=== PATIENT | male | born 1965 | race Caucasian/White ===

== ENCOUNTER 2020-05-19 22:32 | Inpatient (IN) ==
[2020-05-19] MEDS ORDERED: PANTOprazole 40 MG in SYRINGE 0 ML IV ONE (22:43)
[2020-05-19] MEDS ORDERED: ONDANSETRON INJ 2 MG/ML 2 ML VIAL IV STA (22:43)
[2020-05-19] MEDS ORDERED: FAMOTIDINE 20MG IV PUSH 20 MG/5 ML SYR IV STA (22:43)
[2020-05-19] MEDS ORDERED: SODIUM CHLORIDE 0.9% 1000ML 1,000 ML IV SCH (22:45)
[2020-05-19] MEDS ORDERED: LORazepam 1 MG/2 ML VIAL IV STA (22:51)
[2020-05-19 23:03] LABS: Basophils # (auto) 0.02 K/uL (0-0.2); Basophils % (auto) 0.2 %; Eosinophils # (auto) 0.01 K/uL (0-0.5); Eosinophils % (auto) 0.1 %; Hematocrit (blood only) 28.5 % (42-52); Hemoglobin 9.6 g/dL (14.0-18.0); Immature Granulocytes # (auto) 0.02 K/uL (0.00-0.02); Immature Granulocytes % (auto) 0.2 %; Lymphocytes # (auto) 2.19 K/uL (1.2-3.4); Lymphocytes % (auto) 18.6 %; Mean Corpuscular Hemoglobin 35.3 pg (25-34); Mean Corpuscular Hgb Conc 33.7 g/dL (32-36); Mean Corpuscular Volume 104.8 fL (80-100); Monocytes # (auto) 0.92 K/uL (0.11-0.59); Monocytes % (auto) 7.8 %; Neutrophils # (auto) 8.61 K/uL (1.4-6.5); Neutrophils % (auto) 73.1 %; Platelet Count 135 K/uL (130-400); RDW Coefficient of Variation 14.3 % (11.5-14.5); RDW Standard Deviation 53.8 fL (36.4-46.3); Red Blood Count 2.72 M/uL (4.7-6.1); White Blood Count 11.77 K/uL (4.8-10.8)
[2020-05-19 23:12] LABS: iSTAT Creatinine 1.4 mg/dl (0.6-1.3); iSTAT Hemoglobin 10.9 g/dl (14.0-18.0); iSTAT Ionized Calcium 1.02 mmol/l (1.12-1.32); iSTAT Potassium 3.5 mmol/L (3.3-5.0)
--- NOTE | 2020-05-19 23:14 | Emergency Department Note ---
Impression & Plan Acute upper gastrointestinal bleeding, Anemia, Chronic alcohol use ED Provider Note NAME: Lucero ERWIN AGE: 54 SEX: M : 1965 ARRIVES VIA: Walk-In INFORMANT: Patient, ED PROVIDER(S): Ha Arboleda DO CHIEF COMPLAINT: Nausea vomiting HPI: The patient is a 54-year-old male who presented to the emergency department for an evaluation of epigastric pain nausea and vomiting. The patient states that his symptoms began a few days ago. He does have a history of chronic alcohol use. The patient states he is not had any alcohol in 48 hours. He states that he noticed that his symptoms were worsening upon eating and dri nking. He started noticing loose bowel movements which include brown watery diarrhea. He started noticing black stool recently. The patient is not taking any [id number] antacids. He has never had similar symptoms in the past. The patient was also having episodes of emesis which she noticed included miesha blood. At this time he denies having any abdominal pain. He denies having any chest pain or fever. He has no cough or exposure to COVID-19. He notices no lower extremity swelling. He does notice generalized shaking as well as generalized weakness. ROS: See above HPI for pertinent positives & negatives. A total of 10 systems reviewed and were otherwise negative. PAST MEDICAL HISTORY: See Below PAST SURGICAL HISTORY: See Below FAMILY HISTORY: See Below SOCIAL HISTORY: See Below HOME MEDICATIONS: See Below ALLERGIES: See Below VITALS: See Below PHYSICAL EXAMINATION: GENERAL: The patient is awake and alert. He is very anxious appearing and trem ulous. EYES: The conjunctivae are muddy. The pupils are round and reactive. EARS, NOSE, MOUTH AND THROAT: The nose is without any evidence of any deformity. NECK: The neck is nontender and supple. RESPIRATORY: Diminished breath sounds are noted throughout. Scattered expiratory wheezing was noted in all lung ji. CARDIOVASCULAR: Tachycardic rate with regular rhythm was noted. No definite mur mur was appreciated. GASTROINTESTINAL: The abdomen was soft and nondistended. There was no tenderne ss guarding or rigidity. Rectal exam revealed black stool which was strongly heme positive. MUSCULOSKELETAL/EXTREMITIES: There is no evidence of gross deformity full range of motion is noted in the hips and shoulders. SKIN: There is no obvious evidence of any rash. Skin was pale and cool. No significant pedal edema was noted. NEUROLOGIC: Patient is awake alert and oriented x3 strength is symmetric patellar reflexes are 2+ bilaterally. Fine resting tremor was noted in all extremities. MEDICAL DECISION MAKING: The patient is a 54-year-old male who presented to the emergency department for nausea and vomiting. The patient was found to have black stool. He has a history of alcohol use. Likely the patient has upper GI bleeding. He was treated with IV proton pump inhibitor and IV fluids. He was also given thiamine and IV antibiotics. I discussed the patient's laboratory and radiographic studies with him. Some of his symptoms I think could be secondary to withdrawal and he was treated with a small dose of Ativan. The patient appears to be very ill at this time. Type and screen was sent. I did consent the patient for blood transfusion if needed. Triage Nursing notes reviewed. Prior medical records reviewed Vital Signs: reviewed and remarkable for tachycardia. Differential diagnosis: Diverticulosis, AVM, coagulopathy, colitis, inflammatory bowel disease, malignancy, Krupa-Acuña tear, esophagitis, peptic ulcer disease, variceal ble ed, gastritis, epistaxis, fissure, hemorrhoids, as well as other pathologies. ER treatment provided: See below Diagnostics interpreted by me: ECG: EKG was obtained in the emergency department. My interpretation is sinus tachycardia at 143 bpm. There is no ectopy. Diffuse ST segment abnormalities were noted. LVH was suggested by voltage criteria. No previous tracing was available. Cardiac Monitoring: An order was placed for continuous cardiac monitoring. The monitor shows a rate of 113 bpm with sinus tachycardia rhythm. Laboratory studies: As stated above and show below. Imaging studies: See below Consultation(s): I discussed this case with Dr. Barrera who is on-call for the [facility] hospitalist group. He will evaluate the patient in the emergency department. ED COURSE: Procedures: none PDMP:reviewed and no issues Critical Care: I have personally spent greater than 45 minutes of critical care time in the direct management of this patient. This includes bedside care, interpretation of diagnostic studies, and testing, discussion with consultants, patient, and family members, and other required patient management activities. This 45 minutes is in excess of all separately billable procedures. Past Med/Surg History Medical History Chronic alcohol use Social History Smoking Status: Current every day smoker Hx Alcohol Use: Yes Feels Safe at Home: Yes Allergies Allergies Allergy/AdvReac Type Severity Reaction Status Date / Time pollen extracts Allergy Intermediate SNEEZING, Verified 05/19/20 23:14 CONGESTION Home Meds Home Medications Medication Instructions Recorded Confirmed Probiotic Gummies 1 dose PO DAILY 05/19/20 05/19/20 ibuprofen 400 - 600 mg PO DIRECTED PRN 05/19/20 05/19/20 Results & Data (ED) Vital Signs Vital Signs - 24 hr 05/19/20 22:34 05/19/20 23:01 05/19/20 23:18 Temperature 36.4 C L Temperature Source Temporal Artery Scan Pulse Rate 159 H 129 H 134 H Pulse Rate from SpO2 Sensor 130 H 134 H Respiratory Rate 22 19 16 Respiratory Effort / Characteristics Non-Labored Spontaneous Respiratory Depth Normal Respiratory Pattern Regular Blood Pressure 115/64 112/67 Blood Pressure Mean 81 91 Blood Pressure Position Sitting Pulse Oximetry 99 97 96 Oxygen Delivery Method Room Air Room Air Room Air Sepsis Recent Fever Within 48 Hours No Sepsis New/Unexplained Change in Mental Status No Sepsis Action Taken by Nursing No Action Required 05/19/20 23:26 05/19/20 23:30 05/19/20 23:45 Temperature Temperature Source Pulse Rate 128 H 126 H 124 H Pulse Rate from SpO2 Sensor 127 H 124 H Respiratory Rate 22 20 18 Respiratory Effort / Characteristics Respiratory Depth Respiratory Pattern Blood Pressure Blood Pressure Mean Blood Pressure Position Pulse Oximetry 95 95 93 Oxygen Delivery Method Room Air Room Air Room Air Sepsis Recent Fever Within 48 Hours Sepsis New/Unexplained Change in Mental Status Sepsis Action Taken by Nursing 05/20/20 00:00 Temperature Temperature Source Pulse Rate 122 H Pulse Rate from SpO2 Sensor 122 H Respiratory Rate 19 Respiratory Effort / Characteristics Respiratory Depth Respiratory Pattern Blood Pressure 124/71 Blood Pressure Mean 77 Blood Pressure Position Pulse Oximetry 94 Oxygen Delivery Method Room Air Sepsis Recent Fever Within 48 Hours Sepsis New/Unexplained Change in Mental Status Sepsis Action Taken by Half-Way Medications Current Medication List: was personally reviewed by me Laboratory Data Attestation: I reviewed the patient's lab results. Result diagrams: 05/19/20 22:52 05/19/20 22:52 Lab Results 05/19/20 05/19/20 05/19/20 Range/Units 22:52 22:52 22:52 WBC 11.77 H (4.8-10.8) K/uL RBC 2.72 L (4.7-6.1) M/uL Hgb 9.6 L (14.0-18.0) g/dL POC Hgb (14.0-18.0) g/dl Hct 28.5 L (42-52) % POC Hct (42-52) % MCV 104.8 H (80-100) fL MCH 35.3 H (25-34) pg MCHC 33.7 (32-36) g/dL RDW Std Deviation 53.8 H (36.4-46.3) fL RDW Coeff of Lamonte 14.3 (11.5-14.5) % Plt Count 135 (130-400) K/uL MPV 13.0 H (7.4-10.4) fL Immature Gran % (Auto) 0.2 % Neut % (Auto) 73.1 % Lymph % (Auto) 18.6 % Pitkin % (Auto) 7.8 % Eos % (Auto) 0.1 % Baso % (Auto) 0.2 % Neut # (Auto) 8.61 H (1.4-6.5) K/uL Lymph # (Auto) 2.19 (1.2-3.4) K/uL Pitkin # (Auto) 0.92 H (0.11-0.59) K/uL Eos # (Auto) 0.01 (0-0.5) K/uL Baso # (Auto) 0.02 (0-0.2) K/uL Immature Gran # (Auto) 0.02 (0.00-0.02) K/uL PT 18.8 H (9.0-12.0) Seconds INR 1.8 H (0.9-1.1) APTT 35.3 H (21.0-31.0) Seconds PTT Ratio 1.3 POC Sodium (135-144) mmol/L Sodium 132 L (136-145) mmol/L POC Potassium (3.3-5.0) mmol/L Potassium 3.3 L (3.5-5.1) mmol/L POC Chloride (101-112) mmol/L Chloride 90 L (98-107) mmol/L Carbon Dioxide 25 (21-32) mmol/L POC Total CO2 (24-31) mmol/L Anion Gap 17.0 H (3-11) POC Anion Gap (16-25) mmol/L POC BUN (7-18) mg/dl BUN 42 H (7-18) mg/dl Creatinine 1.74 H (0.6-1.4) mg/dl POC Creatinine (0.6-1.3) mg/dl Est Cr Clr Drug Dosing 51.0 ml/min Est GFR ( Amer) 50.8 Est GFR (Non-Af Amer) 43.8 BUN/Creatinine Ratio 24.1 H (10-20) Glucose 117 H (70-99) mg/dl POC Glucose (other) (70-99) mg/dl Calcium 9.2 (8.5-10.1) mg/dl POC Ioniz Calcium Oz (1.12-1.32) mmol/l Total Bilirubin 6.5 H (0.2-1) mg/dl AST 226 H (15-37) U/L ALT 63 (12-78) U/L Alkaline Phosphatase 174 H (45-117) U/L Troponin I < 0.015 (0-0.045) ng/ml Total Protein 7.5 (6.4-8.2) gm/dl Albumin 2.8 L (3.4-5.0) gm/dl Globulin 4.7 H (2.5-4.0) gm/dl Albumin/Globulin Ratio 0.6 L (0.9-2) Lipase 118 (73-393) U/L POC Stool Occult Blood (Negative) SARS-CoV-2 Ag (Rapid) (Negative) 05/19/20 05/19/20 05/19/20 Range/Units 22:59 23:25 Unknown WBC (4.8-10.8) K/uL RBC (4.7-6.1) M/uL Hgb (14.0-18.0) g/dL POC Hgb 10.9 L (14.0-18.0) g/dl Hct (42-52) % POC Hct 32 L (42-52) % MCV (80-100) fL MCH (25-34) pg MCHC (32-36) g/dL RDW Std Deviation (36.4-46.3) fL RDW Coeff of Lamonte (11.5-14.5) % Plt Count (130-400) K/uL MPV (7.4-10.4) fL Immature Gran % (Auto) % Neut % (Auto) % Lymph % (Auto) % Pitkin % (Auto) % Eos % (Auto) % Baso % (Auto) % Neut # (Auto) (1.4-6.5) K/uL Lymph # (Auto) (1.2-3.4) K/uL Pitkin # (Auto) (0.11-0.59) K/uL Eos # (Auto) (0-0.5) K/uL Baso # (Auto) (0-0.2) K/uL Immature Gran # (Auto) (0.00-0.02) K/uL PT (9.0-12.0) Seconds INR (0.9-1.1) APTT (21.0-31.0) Seconds PTT Ratio POC Sodium 132 L (135-144) mmol/L Sodium (136-145) mmol/L POC Potassium 3.5 (3.3-5.0) mmol/L Potassium (3.5-5.1) mmol/L POC Chloride 90 L (101-112) mmol/L Chloride (98-107) mmol/L Carbon Dioxide (21-32) mmol/L POC Total CO2 26 (24-31) mmol/L Anion Gap (3-11) POC Anion Gap 20.0 (16-25) mmol/L POC BUN 40 H (7-18) mg/dl BUN (7-18) mg/dl Creatinine (0.6-1.4) mg/dl POC Creatinine 1.4 H (0.6-1.3) mg/dl Est Cr Clr Drug Dosing ml/min Est GFR ( Amer) Est GFR (Non-Af Amer) BUN/Creatinine Ratio (10-20) Glucose (70-99) mg/dl POC Glucose (other) 119 H (70-99) mg/dl Calcium (8.5-10.1) mg/dl POC Ioniz Calcium Oz 1.02 L (1.12-1.32) mmol/l Total Bilirubin (0.2-1) mg/dl AST (15-37) U/L ALT (12-78) U/L Alkaline Phosphatase (45-117) U/L Troponin I (0-0.045) ng/ml Total Protein (6.4-8.2) gm/dl Albumin (3.4-5.0) gm/dl Globulin (2.5-4.0) gm/dl Albumin/Globulin Ratio (0.9-2) Lipase (73-393) U/L POC Stool Occult Blood Positive A (Negative) SARS-CoV-2 Ag (Rapid) Negative (Negative) Administered Medications Discontinued Medications Sodium Chloride (Nss 1000ml) 1,000 mls @ 999 mls/hr IV .Q1H1M SADE Stop: 05/19/20 23:45 Last Infusion: 05/20/20 00:05 Dose: 0 mls/hr Documented by: [id number] Admin: 05/19/20 23:16 Dose: 999 mls/hr Documented by: [id number] Pantoprazole Sodium 40 mg/ (Syringe) 10 mls @ 5 mls/min IV NOW ONE Stop: 05/19/20 22:44 Last Admin: 05/19/20 23:18 Dose: 5 mls/min Documented by: [id number] Famotidine (Pepcid 20mg Iv Push) 20 mg in 5 mls @ 2.5 mls/min IV NOW STA Stop: 05/19/20 22:44 Last Admin: 05/19/20 23:23 Dose: 2.5 mls/min Documented by: [id number] Lorazepam (Ativan) 1 mg in 2 mls @ 2 mls/min IV NOW STA Stop: 05/19/20 22:52 Last Admin: 05/19/20 23:15 Dose: 2 mls/min Documented by: [id number] Thiamine HCl 200 mg/ Sodium (Chloride) 52 mls @ 208 mls/hr IV NOW STA Stop: 05/19/20 23:37 Last Admin: 05/19/20 23:54 Dose: 208 mls/hr Documented by: [id number] Ondansetron HCl (Ondansetron Inj 2 Mg/Ml 2 Ml Vial) 4 mg IV ONE STA Stop: 05/19/20 22:44 Last Admin: 05/19/20 23:17 Dose: 4 mg Documented by: [id number] Imaging Data Attestation: I personally reviewed and interpreted this imaging study as follows: My Impression: 1 view the chest x-ray was obtained in the emergency department. My interpretation is hyperinflated lungs were noted. No free air was noted. No infiltrate was appreciated. KUB was obtained in the emergency department. Nonspecific bowel gas pattern was noted. There was no free air. No definite obstruction was appreciated. Blood Pressure Blood Pressure Findings: Normal blood pressure Discharge Plan Visit Data Chief Complaint: Weakness Stated Complaint: throwing up blood, weak ED Provider: Ha Arboleda Discharge Problem: Acute upper gastrointestinal bleeding, Anemia, Chronic alcohol use Patient Disposition: Being Evaluated by Hospitalist Condition: Good Forms Stand Alone Forms: [facility] Prescriptions Prescriptions: No Action ibuprofen 200 mg Tablet 400 - 600 mg PO DIRECTED PRN (Reason: FEVER/PAIN) RF: 0 Probiotic Gummies 1 dose PO DAILY RF: 0 Referrals Referrals: Carson Benitez MD [Primary Care Provider] - Discharge Problem: Anemia Qualifiers: Anemia type: unspecified type Qualified Code(s): D64.9 - Anemia, unspecified
[2020-05-19 23:20] LABS: INR 1.8 (0.9-1.1); Partial Thromboplastin Ratio 1.3; Partial Thromboplastin Time 35.3 Seconds (21.0-31.0); Prothrombin Time 18.8 Seconds (9.0-12.0)
[2020-05-19] MEDS ORDERED: cefTRIAXone SODIUM 1,000 MG/50 ML BAG IV STA (23:23)
[2020-05-19] MEDS ORDERED: THIAMINE HCL 200 MG in SODIUM CHLORIDE 0.9% 50 ML IV STA (23:23)
[2020-05-19 23:49] LABS: Alanine Aminotransferase 63 U/L (12-78); Albumin Globulin Ratio 0.6 (0.9-2); Albumin Level 2.8 gm/dl (3.4-5.0); Alkaline Phosphatase 174 U/L (45-117); Aspartate Aminotransferase 226 U/L (15-37); BUN Creatinine Ratio 24.1 (10-20); Bilirubin,Total 6.5 mg/dl (0.2-1); Blood Urea Nitrogen 42 mg/dl (7-18); Calcium 9.2 mg/dl (8.5-10.1); Carbon Dioxide 25 mmol/L (21-32); Chloride 90 mmol/L (98-107); Est GFR (African American) 50.8; Est GFR (Non-African American) 43.8; Globulin 4.7 gm/dl (2.5-4.0); Glucose 117 mg/dl (70-99); Lipase 118 U/L (73-393); Potassium 3.3 mmol/L (3.5-5.1); Sodium 132 mmol/L (136-145); Total Protein 7.5 gm/dl (6.4-8.2); Troponin I < 0.015 ng/ml (0-0.045)
[2020-05-20] MEDS ORDERED: LORazepam 1.5 MG/3 ML VIAL IV STA (01:37)
[2020-05-20] MEDS ORDERED: METOPROLOL TARTRATE 1 MG/ML VIAL IV STA (01:37)
[2020-05-20] MEDS ORDERED: PIPERACILL/TAZOBAC CONSULT ACTIVE PRN (02:38)
[2020-05-20] MEDS ORDERED: LORazepam 3 MG/6 ML VIAL IV PRN (02:38)
[2020-05-20] MEDS ORDERED: cloNIDine HCL 0.1 MG TAB PO PRN (02:38)
[2020-05-20] MEDS ORDERED: GABAPENTIN 1200MG ALCOHOL WITHDRAWAL LOAD PO STA (02:38)
[2020-05-20] MEDS ORDERED: LORazepam 1 MG/2 ML VIAL IV PRN (02:38)
[2020-05-20] MEDS ORDERED: METOPROLOL TARTRATE 1 MG/ML VIAL IV PRN (02:38)
[2020-05-20] MEDS ORDERED: LORazepam 2 MG/4 ML VIAL IV PRN (02:38)
[2020-05-20] MEDS ORDERED: ATIVAN IV ALCOHOL WITHDRAWL IV PRN (02:38)
[2020-05-20] MEDS ORDERED: POTASSIUM CHLORIDE 20 MEQ/15 ML UDC PO STA (02:38)
[2020-05-20] MEDS ORDERED: NITROGLYCERIN SL 0.4 MG/TAB TAB SL PRN (02:38)
[2020-05-20] MEDS ORDERED: ONDANSETRON INJ 2 MG/ML 2 ML VIAL IV PRN ×2 (02:38→12:24)
[2020-05-20] MEDS ORDERED: MULTI-VITAMIN INFUSION 10 ML, THIAMINE HCL 100 MG, FOLIC ACID 1 MG in SODIUM CHLORIDE 0... IV ONE (02:38)
[2020-05-20] MEDS ORDERED: GABAPENTIN 600 MG TAB PO ONE (03:00)
[2020-05-20] MEDS: D5NSS + 20MEQ KCL 20 MEQ/1,000 ML BAG IV SCH ×2 (03:30→14:39)
[2020-05-20] MEDS: PANTOprazole 40 MG in DEXTROSE 5% 100 ML IV SCH ×5 (03:33→22:56)
--- NOTE | 2020-05-20 05:28 | History and Physical Report ---
DATE OF ADMISSION: 05/20/2020 CHIEF COMPLAINT: Blood in the stools and hematemesis. HISTORY OF PRESENT ILLNESS: This is a 54-year-old male with ongoing tobacco abuse and alcohol abuse, who presents with several episodes of hematemesis. As per the patient, he has had about 6 episodes of hematemesis, small amounts since last 1 week, and also few episodes of black stools, and also having abdominal discomfort, which prompted him to come to the ER. He says he drinks several beers everyday and also two shots of Vodka every day for almost 30 years, but his last drink was last Saturday. He also smokes three-quarters of a pack a day of cigarettes for the last 30 years. He lives with his mom and his cats. In the ER, he was found to have tachycardia and shaky and received a dose of Ativan. His hemoglobin was 9.6, we do not have the baseline. His INR is 1.8. Potassium is 3.3, creatinine 1.7, T. bili 6.5,AST 226, ALT 63, alkaline phosphatase 174. Troponin less than 0.015. Hemoccult was positive. Rapid COVID test was negative. EKG showed sinus tachycardia. Complains of some abdominal discomfort. Denies any chest pain. He gets short of breath on exertion. Denies any headache, no blurred vision, no earache, no runny nose, no sore throat. He has smoker's cough. Denies any fevers or chills. He has some nausea. Normal bladder movements. ALLERGIES: POLLEN EXTRACTS. PAST MEDICAL HISTORY: As mentioned above. PAST SURGICAL HISTORY: No past surgical history on file. SOCIAL HISTORY: He says he smokes three-fourths of a pack of cigarettes every day for last 30 years. Alcohol, drinks several beers and couple of shots of vodka every day for last 30 years. FAMILY HISTORY: No family history on file. MEDICATIONS: Ibuprofen p.r.n., Probiotic gummies daily. REVIEW OF SYSTEMS: As per HPI. Rest of the review of systems negative. PHYSICAL EXAMINATION: GENERAL: The patient is of moderate build, not in acute distress. VITAL SIGNS: Temperature 36.7, pulse 72, respiratory rate 20, blood pressure 106/74, oxygen 97% on room air. HEENT: Pupils equal, round, and reactive to light. Oral mucosa moist. NECK: No neck masses seen. CARDIOVASCULAR: S1, S2 heard. Tachycardia. No murmurs. RESPIRATORY SYSTEM: Normal AP diameter. No accessory muscle use. Mild bilateral occasional wheezing. No crackles. ABDOMEN: Soft, bowel sounds present, nontender. No distention. CENTRAL NERVOUS SYSTEM: Cranial nerves II-XII grossly intact. Nonfocal. EXTREMITIES: No edema, no erythema. LABORATORY DATA: WBC 11.7, hemoglobin 9.6, hematocrit 28.5, platelets 135. PT 18.8, INR 1.8, APTT 35.3. Sodium 132, potassium 3.3, chloride 90, bicarbonate 25, BUN 42, creatinine 1.74, serum glucose 117, calcium 9.2, total bilirubin 6.5, AST 226, ALT 63, alkaline phosphatase 174. Troponin I less than 0.015. Lipase 118. Point of care stool occult blood positive. SARS-CoV-2 antigen rapid negative. IMAGING DATA: Chest x-ray, no acute findings. EKG: Sinus tachycardia at a rate of 143. Nonspecific ST abnormalities. No previous ECG available. ASSESSMENT AND PLAN: This is a 54-year-old male with ongoing alcohol abuse and tobacco abuse, presents with gastrointestinal bleed. 1. Gastrointestinal bleed, melena, and also hematemesis: Hemoglobin is 9.6. We do not have the baseline. Was started on Protonix drip. H and H q. 6 hours. Blood consent obtained by the ER. Closely monitor in tele floor. Keep him n.p.o., gentle fluids. Consult GI. Monitor in the tele floor. 2. Alcoholism: Banana bag, IV gabapentin, and IV Ativan protocol and IV thiamine, IV folic acid from a.m. and multivitamin from a.m. Monitor closely for withdrawal. Needs counseling. 3. Tobacco abuse: Needs counseling. 4. Anemia: Hemoglobin 9.6 from GI bleed, will monitor. 5. Elevated LFTs with hyperbilirubinemia: Most likely alcoholic hepatitis. We will follow the repeat labs, await GI input. 6. Hyponatremia: Sodium 132. Getting fluids. Follow the labs in the a.m. 7. Hypokalemia: Will replace. 8. Acute kidney injury: Creatinine of 1.74. We do not have the baseline. We will follow the labs in a.m. Getting fluids. Avoid nephrotoxic agents. 9. Deep venous thrombosis prophylaxis: Sequential compression devices for now. 10. Disposition: Closely monitor in the tele floor. Level 1 full code. Expect to discharge home and follow with family doctor. [place]
[2020-05-20] MEDS ORDERED: PIPERACILLIN/TAZOBACTAM 3.375 GM in DEXTROSE 5% 100 ML IV SCH ×2 (06:00→10:00)
--- NOTE | 2020-05-20 06:20 | XRay Report ---
KUB CLINICAL HISTORY: Vomiting. COMPARISON STUDY: None. FINDINGS: The bowel gas pattern is normal. No urinary calculi are identified. Minimal stool is noted. Although sensitivity is diminished on this supine exam, there is no evidence for free air. IMPRESSION: No evidence for a bowel obstruction. ACT 112: Negative or not required by law. Electronically signed by: Hemanth Morales M.D. 05/20/2020 6:18 AM
--- NOTE | 2020-05-20 06:33 | XRay Report ---
XR chest 1V portable HISTORY: 54 years-old Male vomiting acute nausea with vomiting COMPARISON: KUB of same day TECHNIQUE: Portable AP view of the chest FINDINGS: Cardiomediastinal and hilar silhouettes are within normal limits. No pneumothorax, pleural effusion, airspace consolidation or overt pulmonary edema. Degenerative changes of the spine. Mild right hemidi aphragmatic elevation. IMPRESSION: No acute process. ACT 112: Negative or not required by law. The above report was generated using voice recognition software. It may contain grammatical, syntax o r spelling errors. Electronically signed by: Faizan Huber M.D. 05/20/2020 6:32 AM
[2020-05-20 06:58] LABS: Hematocrit (blood only) 23.5 % (42-52); Mean Corpuscular Hemoglobin 35.2 pg (25-34); Mean Corpuscular Volume 103.5 fL (80-100); Mean Platelet Volume 13.2 fL (7.4-10.4); Platelet Count 109 K/uL (130-400); RDW Coefficient of Variation 14.4 % (11.5-14.5); RDW Standard Deviation 53.8 fL (36.4-46.3); Red Blood Count 2.27 M/uL (4.7-6.1); White Blood Count 8.23 K/uL (4.8-10.8)
[2020-05-20 06:59] LABS: Basophils # (auto) 0.01 K/uL (0-0.2); Basophils % (auto) 0.1 %; Eosinophils # (auto) 0.02 K/uL (0-0.5); Eosinophils % (auto) 0.2 %; Giant Platelets 1+; Immature Granulocytes # (auto) 0.02 K/uL (0.00-0.02); Immature Granulocytes % (auto) 0.2 %; Lymphocytes # (auto) 2.08 K/uL (1.2-3.4); Lymphocytes % (auto) 25.3 %; Monocytes # (auto) 0.87 K/uL (0.11-0.59); Monocytes % (auto) 10.6 %; Neutrophils # (auto) 5.23 K/uL (1.4-6.5); Neutrophils % (auto) 63.6 %; Platelet Estimate Decreased (Normal); Target Cells 1+
[2020-05-20 07:02] LABS: Albumin Level 2.4 gm/dl (3.4-5.0); BUN Creatinine Ratio 34.5 (10-20); Bilirubin Direct 3.7 mg/dl (0-0.2); Bilirubin,Total 5.2 mg/dl (0.2-1); Calcium 8.1 mg/dl (8.5-10.1); Est GFR (African American) 82.9; Est GFR (Non-African American) 71.5; Magnesium 1.3 mg/dl (1.8-2.4); Potassium 3.4 mmol/L (3.5-5.1); Total Protein 6.5 gm/dl (6.4-8.2)
[2020-05-20 07:10] LABS: Folate (Folic Acid) > 20.00 ng/ml (>5.38); Vitamin B12 1805 pg/ml (193-986)
[2020-05-20] MEDS: MAGNESIUM SULFATE / D5W 1 GM/100 ML BAG IV SCH ×4 (07:43→13:53)
[2020-05-20] MEDS: CEROVITE ADV FORMULA TAB PO SCH (07:44)
[2020-05-20] MEDS: THIAMINE HCL 100 MG in SYRINGE 9 ML IV SCH (07:45)
[2020-05-20] MEDS: FOLIC ACID 1 MG in SYRINGE 9.8 ML IV SCH (07:45)
[2020-05-20] MEDS ORDERED: POTASSIUM CHLORIDE CRTAB 20 MEQ TABCR PO ONE (08:00)
--- NOTE | 2020-05-20 09:12 | Ultrasound Report ---
US liver HISTORY: 54 years-old Male elevated lft acutely elevated LFTs COMPARISON: KUB 05/19/2020 TECHNIQUE: Multiple real-time sonographic images of the abdominal right upper quadrant were obtained assessing grayscale appearance and color flow FINDINGS: Pancreas is partially obscured by bowel gas with the imaged portions appearing unremarkable. Increase d echogenicity of the liver with poor through transmission. The liver appears prominent in size. No i ntrahepatic biliary ductal dilation, intrahepatic mass or marginal nodularity. The portal vein subopt imally visualized secondary to patient body habitus. Trace layering gallbladder sludge. The gallbladder is mildly contracted with the wall measuring in th e upper limits of normal at 3 mm. No pericholecystic fluid. No shadowing cholelithiasis. Sonographic Martin sign reported as negative. The common bile duct is not diagnostically visualized. The imaged right kidney is unremarkable without hydronephrosis. IMPRESSION: 1. Echogenic appearance of the liver suggestive of hepatic steatosis. 2. Trace gallbladder sludge. No cholelithiasis or sonographic evidence of acute cholecystitis. 3. Nonvisualization of the common bile duct. ACT 112: Negative or not required by law. The above report was generated using voice recognition software. It may contain grammatical, syntax o r spelling errors. Electronically signed by: Faizan Huber M.D. 05/20/2020 9:11 AM
--- NOTE | 2020-05-20 09:29 | Gastrointestinal Consultation ---
Date of Consultation May 20, 2020 Assessment & Plan (1) Chronic alcohol use: (2) Anemia: (3) Acute upper gastrointestinal bleeding: Pt is a 54 yo male w ETOH, tobacco abuses presented w hematemesis and melena, noted to have macrocytic anemia and elevated LFTs. U/S w signs of hepatic steatosis, galbladder sludge but no stones. - Keep NPO, plan for EGD eval today by Dr. Ortiz - Continue PPI gtt - Monitor blood ct and transfuse prn - Watch for DTs, recommend strict ETOH cessation - Trend LFTs, which likely are up due to ETOH hepatitis. Maddrey Score 32, will monitor and consider starting steroids if increasing Supervising Physician Co-Signing Physician Notes Saw and evaluated the patient this morning. Due to the question of upper gastrointestinal bleeding we will plan for upper endoscopy today for further evaluation. The patient should consider alcohol abstinence as this is the likely cause of his presentation. Physical examination Patient appears older than stated age Disheveled Abdomen without tenderness Impression: Patient with a history of alcohol abuse presents for a question of gastrointestinal bleeding. We will proceed with upper endoscopy today for further evaluation. We have discussed the risks to include bleeding, infection, perforation, pain, aspiration and need for follow-up studies. The patient counseled that he will need alcohol abstinence otherwise he may have early demise as a result of liver disease History of Present Illness Reason for Consultation: GI bleed Requesting Physician: Dr. Efrem Linn Attending Physician: Dr. Rickie Ortiz History of Present Illness Pt is a 54 y/o male w hx of tobacco, ETOH abuses who presented w hematemesis and also reported black stools x 2 weeks. Denies abd pain, n/v currently. Last ETOH intake was last Saturday - usually 2 shots of vodka and "couple of beers". Labs notable for macrocytic anemia: H/H 01/02, LFTs: Tbili 5, AST 193, ALT 50, Alk phos 142. Liver u/s showed signs of hepatic steatosis, gallbladder sludge, no stones, CBD non visualized. Overnight had been NPO and given PPI gtt. No signs of hematemesis or melena per RN Allergies Allergy/AdvReac Type Severity Reaction Status Date / Time pollen extracts Allergy Intermediate SNEEZING, Verified 05/19/20 23:14 CONGESTION Home Medications Medication Instructions Recorded Confirmed Type Probiotic Gummies 1 dose PO DAILY 05/19/20 05/19/20 History ibuprofen 400 - 600 mg PO DIRECTED PRN 05/19/20 05/19/20 History Patient History Medical History (Updated 05/20/20 @ 12:19 by Fanny Belle MD) Chronic alcohol use Surgical History (Updated 05/20/20 @ 12:13 by Fanny Belle MD) No significant past surgical history Social History Smoking Status: Current every day smoker Hx Alcohol Use: Yes Alcohol type: beer and hard liquor Preferred Language: Slovenian Communication Ability: Effective 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 Beliefs That Will Affect Care: None Current Living Situation: Parent Other Information That Helps Us Care for You: No Feels Safe at Home: Yes Safety Concerns: Feels Safe At This Time Review of Systems Review of Systems: All systems reviewed & are unremarkable except as noted in HPI & below Physical Exam Constitutional: WD/WN, vitals as above well groomed, cooperative and comfortable Eyes: PERRL, conjunctivae normal, anicteric sclerae ENMT: external ear and nose normal, oropharynx normal Respiratory: normal respiratory effort, lungs clear to auscultation Cardiovascular: RRR, no murmur, no edema Gastrointestinal (Abdomen): normal bowel sounds, soft, nontender, no hepatosplenomegaly Skin: no rashes, warm and dry no jaundice Neurologic: Motor/Sensory: no asterixis Psychiatric: Drowsy Lymphatic: no lymphedema Results & Data ([facility]) Vital Signs (Past 12 Hours) Vital Signs Temp Pulse Pulse Resp BP BP Pulse Ox 05/20/20 07:22 36.7 C 106 H 20 97/59 L 96 05/20/20 02:38 36.7 C 72 20 106/74 97 05/20/20 02:00 113 H 24 104/67 93 05/20/20 01:45 135 H 24 115/73 92 05/20/20 01:30 138 H 20 115/73 96 05/20/20 01:15 136 H 24 95 05/20/20 01:00 126 H 19 117/74 93 05/20/20 00:30 125 H 21 107/71 94 05/20/20 00:15 128 H 21 94 05/20/20 00:00 122 H 19 124/71 94 05/19/20 23:45 124 H 18 93 05/19/20 23:30 126 H 20 95 05/19/20 23:26 128 H 22 95 05/19/20 23:18 134 H 16 96 05/19/20 23:01 129 H 19 112/67 97 05/19/20 22:34 36.4 C L 159 H 22 115/64 99 (1) Anemia Anemia type: unspecified type Qualified Code(s): D64.9 - Anemia, unspecified
[2020-05-20] MEDS ORDERED: POTASSIUM PHOS 3 MMOL/1 ML INFUSION IV STA (09:39)
[2020-05-20] MEDS: GABAPENTIN 600 MG TAB PO SCH ×3 (09:58→22:59)
[2020-05-20] MEDS ORDERED: POTASSIUM PHOSPHATE 21 MMOL in SODIUM CHLORIDE 0.9% 500 ML IV ONE (10:00)
[2020-05-20 10:59] LABS: Influenza A virus by PCR Negative (Neg); Influenza B virus by PCR Negative (Neg); RSV by PCR Negative (Neg); SARS CoV2 RNA(COVID-19) InHosp NEGATIVE (Negative)
--- NOTE | 2020-05-20 11:59 | Electrocardiogram Report ---
Test Reason : Blood Pressure : / mmHG Vent. Rate : 143 BPM Atrial Rate : 143 BPM P-R Int : 122 ms QRS Dur : 082 ms QT Int : 286 ms P-R-T Axes : 080 085 -08 degrees QTc Int : 441 ms Poor data quality, interpretation may be adversely affected Sinus tachycardia Nonspecific ST and T wave abnormality Abnormal ECG No previous ECGs available Confirmed by Ha Dodge ([id number]) on 05/20/2020 11:59:20 AM Referred By: REFERRED SELF Confirmed By:Ha Dodge
[2020-05-20 12:13] LABS: Hematocrit (blood only) 20.8 % (42-52)
--- NOTE | 2020-05-20 12:14 | Hospitalist Progress Note ---
Date of Service May 20, 2020 Assessment & Plan (1) Acute upper gastrointestinal bleeding: (2) Anemia: -Hospital day #1, on telemetry unit -Presented with hematemesis and melena. History of chronic alcohol use, limited prior medical care. -s/p EGD 05/20: Grade 3 esophageal varice with stigmata of bleeding, banded -Hgb 9.6 -> 8.0 -> 7.0. 1 unit PRBC ordered. Continue to follow serial H&H. -On PPI drip, octreotide drip started after EGD showing variceal bleed -Empiric IV ceftriaxone (3) Elevated LFTs: -Total bili 5.2, AST 193, ALT 50, alk phos 142 -Likely due to chronic alcohol use /alcohol hepatitis. Discriminant function 25. No steroids at this time -Liver US showed hepatic steatosis and gallbladder sludge, no cholelithiasis -Continue to monitor LFTs (4) Chronic alcohol use: -Reports drinking several beers and 2 shots/day -Last drink on 05/17 -Alcohol withdrawal protocol with gabapentin and as needed lorazepam (5) Coagulopathy: -INR 1.8 -Likely due to underlying alcoholic liver disease (6) Electrolyte abnormality: -K+ 3.4, MG +1.3, phosphorus 2.4 -Replace, follow electrolytes (7) DVT prophylaxis: -SCDs due to acute GI bleeding Admission and Anticipated Discharge Date Admission Date: May 20, 2020 Supervising Physician Co-Signing Physician Notes Attending addendum: The patient was seen and examined in telemetry unit He has a significant history of chronic alcoholism and heavy smoking He was admitted with upper GI bleeding and possible withdrawal from alcohol He remains pleasantly confused with minimal tremor involving the outstretched hands during examination Denies any more hematemesis Denies any pain On examination Pleasantly confused with tremors involving the outstretched hands Blood pressure on the lower side with heart rate on the upper side at 92, afebrile Chest-clear to auscultate bilaterally Heart S1-S2 regular-, Abdomen-mildly distended, soft, bowel sounds present Extremities-1+ edema bilaterally [employer]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 Denies further hematemesis and melena. Abdominal pain has improved. Denies chest pain or shortness of breath. No lightheadedness or dizziness. Physical Exam Constitutional: WD/WN, vitals as above Eyes: Sclera mildly icteric Respiratory: normal respiratory effort; no respiratory distress Scattered coarse breath sounds Cardiovascular: Rate/Rhythm: regular rate and regular rhythm Vessels: normal peripheral pulses Extremities: no edema Gastrointestinal (Abdomen): Inspection/Auscultation: normal bowel sounds Percussion/Palpation: abdomen soft; abdomen nontender Neurologic: Motor/Sensory: no tremor and no asterixis Psychiatric: Orientation: alert and oriented x 3 Results & Data Results & Data ([facility]) Vital Signs (Past 12 Hours) Vital Signs Temp Pulse Pulse Resp BP BP Pulse Ox 05/20/20 11:52 37.2 C 103 H 18 105/62 100 05/20/20 07:22 36.7 C 106 H 20 97/59 L 96 05/20/20 02:38 36.7 C 72 20 106/74 97 05/20/20 02:00 113 H 24 104/67 93 05/20/20 01:45 135 H 24 115/73 92 05/20/20 01:30 138 H 20 115/73 96 05/20/20 01:15 136 H 24 95 05/20/20 01:00 126 H 19 117/74 93 05/20/20 00:30 125 H 21 107/71 94 05/20/20 00:15 128 H 21 94 Laboratory Results Short CBC 05/19/20 05/20/20 05/20/20 Range/Units 22:52 05:25 11:13 WBC 11.77 H 8.23 (4.8-10.8) K/uL Hgb 9.6 L 8.0 L 7.0 L (14.0-18.0) g/dL Hct 28.5 L 23.5 L 20.8 L* (42-52) % Plt Count 135 109 L (130-400) K/uL BMP 05/19/20 05/20/20 22:52 05:25 Sodium 132 L 136 Potassium 3.3 L 3.4 L Chloride 90 L 98 Carbon Dioxide 25 26 BUN 42 H 40 H Creatinine 1.74 H 1.16 D Glucose 117 H 90 Calcium 9.2 8.1 L Cardiac Enzymes 05/19/20 Range/Units 22:52 Troponin I < 0.015 (0-0.045) ng/ml Liver Function 05/19/20 05/20/20 Range/Units 22:52 05:25 Total Bilirubin 6.5 H 5.2 H (0.2-1) mg/dl Direct Bilirubin 3.7 H (0-0.2) mg/dl AST 226 H 193 H (15-37) U/L ALT 63 50 (12-78) U/L Alkaline Phosphatase 174 H 142 H (45-117) U/L Albumin 2.8 L 2.4 L (3.4-5.0) gm/dl Diagnostic Findings LIVER US IMPRESSION: 1. Echogenic appearance of the liver suggestive of hepatic steatosis. 2. Trace gallbladder sludge. No cholelithiasis or sonographic evidence of acute cholecystitis. 3. Nonvisualization of the common bile duct. (1) Anemia Anemia type: unspecified type Qualified Code(s): D64.9 - Anemia, unspecified
--- NOTE | 2020-05-20 12:16 | Anesthesiology Consultation ---
Date of Service May 20, 2020 Assessment & Plan (1) Encounter for pre-operative examination: Chart Review Chart Review: Acceptable Risk for Surgery and Patient NOT seen in Pre Admission Testing Consults Requested none ASA ASA3 Proposed Anesthesia Anesthesia Type: MAC Risk / Benefits Reviewed With: PT / POA / Parent / Guardian, Accepts Plan and Informed Consent Obtained History Surgery Operation Date: 05/20/20 08:45 Proposed Procedures p Esophagogastroduodenoscopy Dr Angel Ortiz, Height/Weight Height: 5 ft 11 in Weight: 72 kg Allergies Allergy/AdvReac Type Severity Reaction Status Date / Time pollen extracts Allergy Intermediate SNEEZING, Verified 05/19/20 23:14 CONGESTION Medications Home Medications Medication Instructions Recorded Confirmed Last Taken Probiotic Gummies 1 dose PO DAILY 05/19/20 05/19/20 Unknown ibuprofen 400 - 600 mg PO DIRECTED PRN 05/19/20 05/19/20 Unknown Active Medications Generic Name Dose Route Start Last Admin Trade Name Freq PRN Reason Stop Dose Admin Gabapentin 600 mg 05/20/20 10:00 05/20/20 09:58 Gabapentin 600 Mg Tab PO 05/20/20 16:01 600 mg Q6H SADE Administration Thiamine HCl 100 mg/ Syringe 10 mls @ 2 mls/min 05/20/20 09:00 05/20/20 07:45 IV 06/19/20 08:59 2 mls/min QAM SADE Administration Folic Acid 1 mg/ Syringe 10 mls @ 5 mls/min 05/20/20 09:00 05/20/20 07:45 IV 06/19/20 08:59 5 mls/min QAM SADE Administration Pantoprazole Sodium 40 mg/ 100 mls @ 20 mls/hr 05/20/20 03:00 05/20/20 07:43 Dextrose IV 06/19/20 02:59 8 mg/hr Q5H SADE 20 mls/hr Administration 8 MG/HR Potassium Chloride/Dextrose/Sod Cl 20 meq in 1,000 mls @ 50 mls/hr 05/20/20 02:38 05/20/20 03:30 D5nss + 20meq Kcl IV 06/19/20 02:37 50 mls/hr .Q20H SADE Administration Magnesium Sulfate/Dextrose 1 gm in 100 mls @ 50 mls/hr 05/20/20 10:00 05/20/20 11:09 Magnesium Sulfate / D5w IV 05/20/20 13:59 50 mls/hr Q2H SADE Administration Potassium Phosphate 21 mmol/ 507 mls @ 88 mls/hr 05/20/20 10:00 05/20/20 11:08 Sodium Chloride IV 05/20/20 15:45 88 mls/hr ONE ONE Administration Multivitamins/Minerals 1 tab 05/20/20 09:00 05/20/20 07:44 Cerovite Adv Formula Tab PO 06/19/20 08:59 1 tab QAM SADE Administration NPO Date Last Intake of Fluids: 05/19/20 Time Last Intake of Fluids: 20:00 Date Last Intake of Solids: 05/19/20 Time Last Intake of Solids: 20:00 Past Medical History Medical History (Updated 05/20/20 @ 12:19 by Fanny Belle MD) Chronic alcohol use Exercise / Class Metabolic Activity III < 4 Walking/Shop/Light housework Negative for chest pain or shortness of breath. Limited due to dizziness. Past Surgical History Surgical History (Updated 05/20/20 @ 12:13 by Fanny Belle MD) No significant past surgical history Past Anesthesia History No Hx of Anesthesia Complications and No Family Hx of Anesthesia Complications History of PONV No Hx of Motion Sickness Social History Smoking Status: Current every day smoker tobacco type: cigarettes Hx Alcohol Use: Yes Alcohol type: beer and hard liquor alcohol intake frequency: a few times a week substance use type: unknown Last Used Substance: Unknown Review of Systems N/V yesterday - denies now Physical Exam Vital Signs Last Vital Signs Temp 37.2 C 05/20/20 11:52 Pulse 103 H 05/20/20 11:52 Resp 18 05/20/20 11:52 BP 105/62 05/20/20 11:52 Pulse Ox 100 05/20/20 11:52 Constitutional not obese ENMT Mouth: no TMJ abnormality and oral opening not small Thyromental Distance: > or= 3.5 Finger Breadths Mallampati Class: III Mouth / Teeth: 1. chipped Neck normal visual inspection; neck extension not limited Respiratory normal respiratory effort Auscultation: lungs clear to auscultation bilaterally Cardiovascular Rate/Rhythm: regular rate and regular rhythm Heart Sounds: no murmur Neurologic moves all extremities Psychiatric Orientation: alert and oriented x 3 Testing Laboratory Results 05/20/20 05:25 PT 18.8 Seconds (9.0-12.0) H 05/19/20 22:52 INR 1.8 (0.9-1.1) H 05/19/20 22:52 APTT 35.3 Seconds (21.0-31.0) H 05/19/20 22:52 Blood Type A Positive 05/19/20 22:52 Antibody Screen NEGATIVE 05/19/20 22:52 05/20/20 07:20 POC Glucose 111 H
[2020-05-20] MEDS ORDERED: fentaNYL citrate 100 MCG/2 ML VIAL IV PRN (12:24)
[2020-05-20] MEDS ORDERED: SODIUM CHLORIDE 0.9% 250 ML IV PRN (12:24)
[2020-05-20] MEDS ORDERED: ATROPINE SULFATE 0.1 MG/ML 10ML SYR IV PRN (12:24)
[2020-05-20] MEDS ORDERED: ePHEDrine sulfate 50 MG/ML AMP IV PRN (12:24)
[2020-05-20] MEDS ORDERED: fentaNYL citrate 100 MCG/2 ML VIAL ONE (12:27)
[2020-05-20] MEDS ORDERED: LIDOCAINE 2% 20 MG/ML 5 ML SYR IV ONE (12:27)
[2020-05-20] MEDS ORDERED: PROPOFOL IV EMULSION 10 MG/ML 20 ML VIAL IV ONE (12:27)
[2020-05-20] MEDS ORDERED: LIDOCAINE HCL 2% 2 ML VIAL/AMP(20MG/ML) INFIL ONE (12:28)
--- NOTE | 2020-05-20 12:35 | History & Physical Bridge Note ---
Date of Service May 20, 2020 History & Physical Bridge Note I have examined the patient, reviewed the History & Physical and in the interval since the performance of the History & Physical I have noted the following changes of clinical significance: no changes noted. Upper endoscopy planned for evaluation of hematemesis in the setting of alcohol abuse. Please see full consultation for further details of the patient's history and recommendations
[2020-05-20] MEDS ORDERED: OCTREOTIDE ACETATE 50 MCG in SYRINGE 9.5 ML IV STA (13:11)
--- NOTE | 2020-05-20 13:22 | Anesthesiology Progress Note ---
Date of Service May 20, 2020 Anesthesia Post Procedure Vital Signs Vital Signs: Temp Pulse Pulse Pulse Resp BP BP 05/20/20 13:15 101 H 17 109/70 05/20/20 13:05 36.6 C 99 H 12 113/62 05/20/20 11:52 37.2 C 103 H 18 105/62 05/20/20 07:22 36.7 C 106 H 20 97/59 L 05/20/20 02:38 36.7 C 72 20 106/74 05/20/20 02:00 113 H 24 104/67 05/20/20 01:45 135 H 24 115/73 05/20/20 01:30 138 H 20 115/73 05/20/20 01:15 136 H 24 05/20/20 01:00 126 H 19 117/74 05/20/20 00:30 125 H 21 107/71 05/20/20 00:15 128 H 21 05/20/20 00:00 122 H 19 124/71 05/19/20 23:45 124 H 18 05/19/20 23:30 126 H 20 05/19/20 23:26 128 H 22 05/19/20 23:18 134 H 16 05/19/20 23:01 129 H 19 112/67 05/19/20 22:34 36.4 C L 159 H 22 115/64 Pulse Ox 05/20/20 13:15 100 05/20/20 13:05 100 05/20/20 11:52 100 05/20/20 07:22 96 05/20/20 02:38 97 05/20/20 02:00 93 05/20/20 01:45 92 05/20/20 01:30 96 05/20/20 01:15 95 05/20/20 01:00 93 05/20/20 00:30 94 05/20/20 00:15 94 05/20/20 00:00 94 05/19/20 23:45 93 05/19/20 23:30 95 05/19/20 23:26 95 05/19/20 23:18 96 05/19/20 23:01 97 05/19/20 22:34 99 Transfer of Care Handoff Completed per policy Notes Mental Status: alert / awake / arousable and participated in evaluation Nausea / Vomiting: adequately controlled Pain: adequately controlled Airway Patency, RR, SpO2: stable & adequate BP & HR: stable & adequate Hydration State: stable & adequate Anesthetic Complications: no major complications apparent and Pt Satisfied with anesthetic care
--- NOTE | 2020-05-20 13:23 | GI REPORT ---
Patient Name: Lucero Gross Procedure Date: 05/20/2020 12:50 PM Date of : 1965 Admit Type: Inpatient Age: 54 Gender: Male Attending MD: Rickie Ortiz DO Procedure: Upper GI endoscopy Providers: Rickie Ortiz DO Referring MD: Efrem Linn Indications: Hematemesis, Melena Medicines: Monitored Anesthesia Care Complications: No immediate complications. Estimated blood loss: Minimal. Estimated Blood Loss: Estimated blood loss was minimal. Procedure: Pre-Anesthesia Assessment: - Prior to the procedure, a History and Physical was performed, and patient medications, allergies and sensitivities were reviewed. The patient's tolerance of previous anesthesia was reviewed. - The risks and benefits of the procedure and the sedation options and risks were discussed with the patient. All questions were answered and informed consent was obtained. - Patient identification and proposed procedure were verified prior to the procedure by the physician, the nurse and the tune up mechanic. The procedure was verified in the procedure room. - Pre-procedure physical examination revealed no contraindications to sedation. - ASA Grade Assessment: III - A patient with severe systemic disease. - After reviewing the risks and benefits, the patient was deemed in satisfactory condition to undergo the procedure. - The anesthesia plan was to use monitored anesthesia care (MAC). - Immediately prior to administration of medications, the patient was re-assessed for adequacy to receive sedatives. - The heart rate, respiratory rate, oxygen saturations, blood pressure, adequacy of pulmonary ventilation, and response to care were monitored throughout the procedure. - The physical status of the patient was re-assessed after the procedure. After obtaining informed consent, the endoscope was passed under direct vision. Throughout the procedure, the patient's blood pressure, pulse, and oxygen saturations were monitored continuously. The Endoscope was introduced through the mouth, and advanced to the second part of duodenum. The upper GI endoscopy was accomplished without difficulty. The patient tolerated the procedure well. Findings: Four columns of grade III varices with stigmata of recent bleeding were found in the lower third of the esophagus, 34 to 40 cm from the incisors. They were 6 mm in largest diameter. Red eladia signs were present. Four bands were successfully placed with complete eradication, resulting in deflation of varices. There was no bleeding at the end of the procedure. Moderate portal hypertensive gastropathy was found in the entire examined stomach. The examined duodenum was normal. Impression: - Grade III esophageal varices with stigmata of recent bleeding. Completely eradicated. Banded. - Portal hypertensive gastropathy. - Normal examined duodenum. - No specimens collected. Recommendation: - [facility]. - Clear liquid diet today, then a soft diet for 2 weeks. - Use Prilosec (omeprazole) 40 mg PO daily. - Administer an IV bolus of 50 micrograms of octreotide followed by an infusion of 50 micrograms per hour for 3 days. - Use broad spectrum antibiotics until discharge. - Repeat upper endoscopy in 4 weeks for retreatment. Rickie Ortiz D.O. Rickie Ortiz, DO 05/20/2020 1:23:38 PM This report has been signed electronically. Note Initiated On: 05/20/2020 12:50 PM Number of Addenda: 0 I attest to the content of the Intraoperative Record and orders documented therein, exceptions below {[id number]}
[2020-05-20] MEDS ORDERED: OCTREOTIDE ACETATE 50 MCG in SYRINGE 9.5 ML IV ONE (13:30)
[2020-05-20] MEDS: cefTRIAXone SODIUM 1,000 MG in DEXTROSE 5% 50 ML IV SCH (14:37)
[2020-05-20] MEDS: OCTREOTIDE ACETATE 500 MCG in 0.9 % SODIUM CHLORIDE 100 ML IV SCH ×2 (14:38→22:56)
[2020-05-20 19:51] LABS: Hematocrit (blood only) 24.6 % (42-52); Hemoglobin 8.2 g/dL (14.0-18.0)
[2020-05-20 20:56] LABS: Amphetamines+Metham, Urine Neg (Neg); Barbiturates, Urine Neg (Neg); Benzodiazepine, Urine Neg (Neg); Cocaine, Urine Neg (Neg); MDMA (Ecstacy), Urine Pos (Neg); Methadone, Urine Neg (Neg); Opiate, Urine Neg (Neg); Phencyclidine, Urine Neg (Neg)
[2020-05-20 23:20] LABS: Hematocrit (blood only) 27.6 % (42-52); Hemoglobin 9.4 g/dL (14.0-18.0)
[2020-05-21] MEDS: PANTOprazole 40 MG in DEXTROSE 5% 100 ML IV SCH ×5 (03:38→23:11)
[2020-05-21] MEDS ORDERED: IBUPROFEN 200 MG TAB PO STA ×2 (04:03→22:45)
[2020-05-21] MEDS ORDERED: POLYETHYLENE (MIRALAX) 17 GM PACK PO PRN (04:03)
[2020-05-21 08:05] LABS: INR 1.6 (0.9-1.1); Prothrombin Time 16.9 Seconds (9.0-12.0)
[2020-05-21 08:25] LABS: Hematocrit (blood only) 26.1 % (42-52); Hemoglobin 8.9 g/dL (14.0-18.0); Mean Corpuscular Hemoglobin 33.8 pg (25-34); Mean Corpuscular Hgb Conc 34.1 g/dL (32-36); Mean Corpuscular Volume 99.2 fL (80-100); Mean Platelet Volume 12.8 fL (7.4-10.4); Platelet Count 91 K/uL (130-400); Platelet Estimate Decreased (Normal); RDW Coefficient of Variation 19.1 % (11.5-14.5); Red Blood Count 2.63 M/uL (4.7-6.1); White Blood Count 5.35 K/uL (4.8-10.8)
[2020-05-21 08:28] LABS: Albumin Level 2.4 gm/dl (3.4-5.0); BUN Creatinine Ratio 24.3 (10-20); Calcium 8.1 mg/dl (8.5-10.1); Creatinine Clr Calc Pharmacy 116.5 ml/min; Est GFR (African American) 119.4; Est GFR (Non-African American) 103.1; Potassium 3.5 mmol/L (3.5-5.1)
[2020-05-21] MEDS: OCTREOTIDE ACETATE 500 MCG in 0.9 % SODIUM CHLORIDE 100 ML IV SCH ×2 (08:29→18:20)
[2020-05-21] MEDS: GABAPENTIN 600 MG TAB PO SCH ×2 (08:30→16:50)
[2020-05-21] MEDS: FOLIC ACID 1 MG in SYRINGE 9.8 ML IV SCH (08:30)
[2020-05-21] MEDS: CEROVITE ADV FORMULA TAB PO SCH (08:31)
[2020-05-21] MEDS: THIAMINE HCL 100 MG in SYRINGE 9 ML IV SCH (08:31)
[2020-05-21 08:37] LABS: Albumin Globulin Ratio 0.6 (0.9-2); Total Protein 6.4 gm/dl (6.4-8.2)
--- NOTE | 2020-05-21 13:24 | Hospitalist Progress Note ---
Date of Service May 21, 2020 Assessment & Plan (1) Acute upper gastrointestinal bleeding: Presented with hematemesis and melena EGD on 05/20 showed grade 3 esophageal varices with stigmata of bleeding which were banded Has been getting intravenous octreotide and Protonix and empiric ceftriaxone Denies any symptoms as of today except some weakness Will monitor CBC (2) Anemia: -Hospital day #1, on telemetry unit -Presented with hematemesis and melena. History of chronic alcohol use, limited prior medical care. -s/p EGD 05/20: Grade 3 esophageal varice with stigmata of bleeding, banded -Hgb 9.6 -> 8.0 -> 7.0. 1 unit PRBC ordered. Continue to follow serial H&H. -We will monitor CBC (3) Elevated LFTs: -Total bili 5.2, AST 193, ALT 50, alk phos 142 -Likely due to chronic alcohol use /alcohol hepatitis. Discriminant function 25. No steroids at this time -Liver US showed hepatic steatosis and gallbladder sludge, no cholelithiasis -Continue to monitor LFTs (4) Chronic alcohol use: -Reports drinking several beers and 2 shots/day -Last drink on 05/17 -Alcohol withdrawal protocol with gabapentin and as needed lorazepam -Has minimal withdrawal symptoms but no delirium -Will likely need to go to inpatient rehab -We will get PT and OT evaluation prior to discharge Tobacco abuse Advised to quit smoking We will provide nicotine patch (5) Coagulopathy: -INR 1.8 -Likely due to underlying alcoholic liver disease (6) Electrolyte abnormality: -K+ 3.4, MG +1.3, phosphorus 2.4 -Replace, follow electrolytes (7) DVT prophylaxis: -SCDs due to acute GI bleeding Admission and Anticipated Discharge Date Admission Date: May 20, 2020 Subjective Patient seen and examined. Denies further hematemesis and melena. Abdominal pain has improved. Denies chest pain or shortness of breath. No lightheadedness or dizziness. 05/21/2020 The patient was seen and examined in telemetry unit He has been feeling a little bit better today and complains to have abdominal bloating Does not have any nausea and or vomiting and his bowel has not moved yet Denies any palpitation and/or shortness of breath Review of Systems Review of Systems: All systems reviewed and are unremarkable except as noted below Respiratory: no dyspnea Cardiovascular: + palpitations Gastrointestinal: + bloating; no abdominal pain, no nausea and no vomiting Neurologic: + unsteadiness and + generalized weakness Physical Exam Physical Exam: Lying in bed with minimal restlessness Constitutional: well developed, well nourished and + ill appearing Eyes: PERRL, conjunctivae normal, anicteric sclerae ENMT: external ear and nose normal, oropharynx normal Neck: trachea midline, no thyromegaly Respiratory: no respiratory distress Auscultation: lungs clear to auscultation bilaterally Cardiovascular: Rate/Rhythm: regular rate and regular rhythm Heart Sounds: no murmur Extremities: + edema (Trace edema bilaterally) Gastrointestinal (Abdomen): Inspection/Auscultation: + abdomen distended and normal bowel sounds (Diminished) Percussion/Palpation: abdomen soft; abdomen nontender Musculoskeletal: No acute arthritis in any joint Neurologic: moves all extremities Mild tremors involving the outstretched hands Psychiatric: Insight: + poor insight Lymphatic: no cervical or axillary lymphadenopathy Results & Data Results & Data ([facility]) Vital Signs (Past 12 Hours) Vital Signs Temp Pulse Pulse Resp BP BP Pulse Ox 05/21/20 11:47 37.5 C 99 H 18 105/65 92 05/21/20 08:00 118 H 05/21/20 07:30 36.8 C 96 H 18 115/71 94 05/21/20 04:13 37.1 C 101 H 16 115/70 90 Laboratory Results Short CBC 05/20/20 05/20/20 05/21/20 Range/Units 19:40 23:05 07:38 WBC 5.35 (4.8-10.8) K/uL Hgb 8.2 L 9.4 L 8.9 L (14.0-18.0) g/dL Hct 24.6 L 27.6 L 26.1 L (42-52) % Plt Count 91 L (130-400) K/uL BMP 05/21/20 07:38 Sodium 133 L Potassium 3.5 Chloride 99 Carbon Dioxide 27 BUN 19 H D Creatinine 0.78 D Glucose 100 H Calcium 8.1 L Liver Function 05/21/20 Range/Units 07:38 Total Bilirubin 4.0 H (0.2-1) mg/dl AST 178 H (15-37) U/L ALT 50 (12-78) U/L Alkaline Phosphatase 140 H (45-117) U/L Albumin 2.4 L (3.4-5.0) gm/dl Medications Administered Current Inpatient Medications Clonidine HCl (Clonidine Hcl 0.1 Mg Tab) 0.1 mg PO Q4H PRN PRN Reason: Hypertension Stop: 06/19/20 02:37 Gabapentin (Gabapentin 600 Mg Tab) 600 mg PO Q8H [facility] Stop: 05/21/20 16:01 Last Admin: 05/21/20 08:30 Dose: 600 mg Documented by: Gabapentin (Gabapentin 600 Mg Tab) 600 mg PO Q12H [facility] Stop: 05/22/20 16:01 Gabapentin (Gabapentin 600 Mg Tab) 600 mg PO Q24H [facility] Stop: 05/23/20 16:01 Lorazepam (Ativan) 1 mg in 2 mls @ 2 mls/min IV UD PRN; Protocol PRN Reason: EtOH Withdrawl AWSS Score 6,7 Stop: 06/19/20 02:37 Lorazepam (Ativan) 2 mg in 4 mls @ 4 mls/min IV UD PRN; Protocol PRN Reason: EtOH Withdrawl AWSS Score 8,9 Stop: 06/19/20 02:37 Lorazepam (Ativan) 3 mg in 6 mls @ 4 mls/min IV ONCE PRN; Protocol PRN Reason: EtOH Withdrawl AWSS Score >=10 Stop: 06/19/20 02:37 Thiamine HCl 100 mg/ Syringe 10 mls @ 2 mls/min IV QAM [facility] Stop: 06/19/20 08:59 Last Admin: 05/21/20 08:31 Dose: 2 mls/min Documented by: Folic Acid 1 mg/ Syringe 10 mls @ 5 mls/min IV QAM [facility] Stop: 06/19/20 08:59 Last Admin: 05/21/20 08:30 Dose: 5 mls/min Documented by: Pantoprazole Sodium 40 mg/ (Dextrose) 100 mls @ 20 mls/hr IV Q5H [facility] Stop: 06/19/20 02:59 Last Admin: 05/21/20 08:29 Dose: 8 mg/hr, 20 mls/hr Documented by: Potassium Chloride/Dextrose/Sod Cl (D5nss + 20meq Kcl) 20 meq in 1,000 mls @ 50 mls/hr IV .Q20H [facility] Stop: 06/19/20 02:37 Last Infusion: 05/20/20 14:53 Dose: Infused Documented by: Ceftriaxone Sodium 1,000 mg/ (Dextrose) 60 mls @ 100 mls/hr IV DAILY@1400 [facility]; Protocol Stop: 05/30/20 13:59 Last Infusion: 05/20/20 17:13 Dose: Infused Documented by: Octreotide Acetate 500 mcg/ (Sodium Chloride) 100.5 mls @ 10 mls/hr IV .Q10H3M [facility] Stop: 06/19/20 13:44 Last Admin: 05/21/20 08:29 Dose: 10 mls/hr Documented by: Metoprolol Tartrate (Metoprolol Tartrate 1 Mg/Ml Vial) 5 mg IV Q6 PRN PRN Reason: Tachycardia Stop: 06/19/20 02:37 Multivitamins/Minerals (Cerovite Adv Formula Tab) 1 tab PO QAM [facility] Stop: 06/19/20 08:59 Last Admin: 05/21/20 08:31 Dose: 1 tab Documented by: Nitroglycerin (Nitroglycerin Sl 0.4 Mg/Tab Tab) 0.4 mg SL UD PRN PRN Reason: Chest Pain Stop: 06/19/20 02:37 Ondansetron HCl (Ondansetron Inj 2 Mg/Ml 2 Ml Vial) 4 mg IV Q6H PRN PRN Reason: Nausea Stop: 06/19/20 02:37 Polyethylene Glycol (Polyethylene (Miralax) 17 Gm Pack) 17 gm PO DAILY PRN PRN Reason: Constipation Stop: 06/20/20 04:02 (1) Anemia Anemia type: unspecified type Qualified Code(s): D64.9 - Anemia, unspecified
[2020-05-21] MEDS: NICOTINE 14 MG/24 HR PATCH TD SCH (13:41)
--- NOTE | 2020-05-21 13:52 | Gastroenterology Progress Note ---
Date of Service May 21, 2020 Assessment & Plan (1) Chronic alcohol use: (2) Acute upper gastrointestinal bleeding: (3) Elevated LFTs: (4) Esophageal varices: Will remain on Octreotide gtt for 3 days Continue Protonix gtt. Will need daily PPI therapy when stable for discharge Will followup with Dr. Ortiz for further EGD to evaluate need for further EVL Abstain from all alcohol as it is a known liver toxin. Continue supportive care Admission and Anticipated Discharge Date Admission Date: May 20, 2020 Subjective Doing well today. Denies any bloody or black stools. Tolerating PO intake. Still with some lightheadedness, but improving. He denies any fevers, chills, nausea, vomiting or diarrhea. Nursing reports no issues overnight. Review of Systems Review of Systems: All systems reviewed & are unremarkable except as noted in HPI & below Physical Exam Constitutional: WD/WN, vitals as above Eyes: sclerae not anicteric Respiratory: normal respiratory effort; no respiratory distress and no labored breathing Cardiovascular: RRR, no murmur, no edema Gastrointestinal (Abdomen): normal bowel sounds, soft, nontender, no hepatosplenomegaly Psychiatric: A+Ox3, euthymic affect Results & Data Results & Data ([facility]) Vital Signs (Past 12 Hours) Vital Signs Temp Pulse Pulse Resp BP BP Pulse Ox 05/21/20 11:47 37.5 C 99 H 18 105/65 92 05/21/20 08:00 118 H 05/21/20 07:30 36.8 C 96 H 18 115/71 94 05/21/20 04:13 37.1 C 101 H 16 115/70 90 PG Care Time/CCT Total # of Minutes Spent Total Time Spent with Patient: Total time spent is greater than 50% in coordination of care (as documented) at patient's floor/unit and/or counseling patient: Coding Level of Care Code 60179 Subseq Hosp Care Lvl 3 Diagnoses Chronic alcohol use Z72.89 Acute upper gastrointestinal bleeding K92.2 Elevated LFTs R79.89 Esophageal varices I85.00
[2020-05-21] MEDS: cefTRIAXone SODIUM 1,000 MG in DEXTROSE 5% 50 ML IV SCH (14:24)
[2020-05-21] MEDS: D5NSS + 20MEQ KCL 20 MEQ/1,000 ML BAG IV SCH (14:41)
[2020-05-22] MEDS: OCTREOTIDE ACETATE 500 MCG in 0.9 % SODIUM CHLORIDE 100 ML IV SCH ×2 (04:33→14:26)
[2020-05-22] MEDS: PANTOprazole 40 MG in DEXTROSE 5% 100 ML IV SCH ×4 (04:33→20:35)
[2020-05-22] MEDS: GABAPENTIN 600 MG TAB PO SCH ×2 (05:25→07:45)
[2020-05-22] MEDS: NICOTINE 14 MG/24 HR PATCH TD SCH (07:44)
[2020-05-22] MEDS: CEROVITE ADV FORMULA TAB PO SCH (07:45)
[2020-05-22] MEDS: FOLIC ACID 1 MG in SYRINGE 9.8 ML IV SCH (07:47)
[2020-05-22] MEDS: THIAMINE HCL 100 MG in SYRINGE 9 ML IV SCH (07:47)
[2020-05-22 08:09] LABS: Basophils # (auto) 0.04 K/uL (0-0.2); Basophils % (auto) 0.7 %; Eosinophils # (auto) 0.14 K/uL (0-0.5); Eosinophils % (auto) 2.3 %; Hematocrit (blood only) 27.3 % (42-52); Hemoglobin 9.3 g/dL (14.0-18.0); Immature Granulocytes # (auto) 0.01 K/uL (0.00-0.02); Immature Granulocytes % (auto) 0.2 %; Lymphocytes # (auto) 2.27 K/uL (1.2-3.4); Mean Corpuscular Hemoglobin 34.6 pg (25-34); Mean Corpuscular Hgb Conc 34.1 g/dL (32-36); Mean Corpuscular Volume 101.5 fL (80-100); Monocytes # (auto) 0.74 K/uL (0.11-0.59); Monocytes % (auto) 12.1 %; Neutrophils # (auto) 2.93 K/uL (1.4-6.5); Neutrophils % (auto) 47.7 %; Phosphorus 2.7 mg/dl (2.5-4.9); Platelet Count 107 K/uL (130-400); Platelet Estimate Decreased (Normal); Polychromasia 1+; RDW Coefficient of Variation 18.8 % (11.5-14.5); RDW Standard Deviation 68.5 fL (36.4-46.3); Red Blood Count 2.69 M/uL (4.7-6.1); Target Cells 1+; White Blood Count 6.13 K/uL (4.8-10.8)
[2020-05-22] MEDS: D5NSS + 20MEQ KCL 20 MEQ/1,000 ML BAG IV SCH (10:23)
--- NOTE | 2020-05-22 13:35 | Hospitalist Progress Note ---
Date of Service May 22, 2020 Assessment & Plan (1) Acute upper gastrointestinal bleeding: Presented with hematemesis and melena EGD on 05/20 showed grade 3 esophageal varices with stigmata of bleeding which were banded Has been getting intravenous octreotide and Protonix and empiric ceftriaxone Denies any symptoms as of today except some weakness Will monitor CBC-hemoglobin remains stable Abdominal pain/discomfort Rated to be abdominal distention with sluggish bowel sound Has not had any bowel movement since day before yesterday We will get KUB to rule out any obstruction (2) Anemia: -Hospital day #1, on telemetry unit -Presented with hematemesis and melena. History of chronic alcohol use, limited prior medical care. -s/p EGD 05/20: Grade 3 esophageal varice with stigmata of bleeding, banded -Hgb 9.6 -> 8.0 -> 7.0. 1 unit PRBC ordered. Continue to follow serial H&H. -Hemoglobin remains stable at more than 9 -Monitor CBC (3) Elevated LFTs: -Total bili 5.2, AST 193, ALT 50, alk phos 142 -Likely due to chronic alcohol use /alcohol hepatitis. Discriminant function 25. No steroids at this time -Liver US showed hepatic steatosis and gallbladder sludge, no cholelithiasis -Continue to monitor LFTs (4) Chronic alcohol use: -Reports drinking several beers and 2 shots/day -Last drink on 05/17 -Alcohol withdrawal protocol with gabapentin and as needed lorazepam -Has minimal withdrawal symptoms but no delirium -Will likely need to go to inpatient rehab -We will get PT and OT evaluation prior to discharge -Discussed about inpatient rehab again today Tobacco abuse Advised to quit smoking We will provide nicotine patch (5) Coagulopathy: -INR 1.8 -Likely due to underlying alcoholic liver disease (6) Electrolyte abnormality: -K+ 3.4, MG +1.3, phosphorus 2.4 -Replace, follow electrolytes (7) DVT prophylaxis: -SCDs due to acute GI bleeding Admission and Anticipated Discharge Date Admission Date: May 20, 2020 Subjective Patient seen and examined. Denies further hematemesis and melena. Abdominal pain has improved. Denies chest pain or shortness of breath. No lightheadedness or dizziness. 05/21/2020 The patient was seen and examined in telemetry unit He has been feeling a little bit better today and complains to have abdominal bloating Does not have any nausea and or vomiting and his bowel has not moved yet Denies any palpitation and/or shortness of breath 05/22/2020 The patient was seen and examined in telemetry unit He has been feeling much better with some abdominal discomfort and distention Denies any chest pain and/or shortness of breath, denies any nausea and/or vomiting Review of Systems Review of Systems: All systems reviewed and are unremarkable except as noted below Cardiovascular: + palpitations Gastrointestinal: + bloating; no abdominal pain, no nausea and no vomiting Neurologic: + unsteadiness and + generalized weakness Physical Exam Physical Exam: Lying in bed with minimal restlessness Constitutional: well developed, well nourished and + ill appearing Eyes: PERRL, conjunctivae normal, anicteric sclerae ENMT: external ear and nose normal, oropharynx normal Neck: trachea midline, no thyromegaly Respiratory: no respiratory distress Auscultation: lungs clear to auscultation bilaterally Cardiovascular: Rate/Rhythm: regular rate and regular rhythm Heart Sounds: no murmur Extremities: + edema (Trace edema bilaterally) Gastrointestinal (Abdomen): Inspection/Auscultation: + abdomen distended and normal bowel sounds (Diminished) Percussion/Palpation: + abdomen tender (Mildly tender lower quadrants) and abdomen soft Neurologic: moves all extremities Psychiatric: Insight: + poor insight Lymphatic: no cervical or axillary lymphadenopathy Results & Data Results & Data ([facility]) Vital Signs (Past 12 Hours) Vital Signs Temp Pulse Pulse Resp BP BP Pulse Ox 05/22/20 11:52 37.2 C 86 18 123/70 97 05/22/20 08:00 72 05/22/20 07:44 37.2 C 88 18 126/76 95 05/22/20 03:41 36.7 C 87 18 105/63 90 Laboratory Results Short CBC 05/19/20 05/20/20 05/21/20 Range/Units 22:52 05:25 07:38 WBC (4.8-10.8) K/uL Hgb (14.0-18.0) g/dL Hct (42-52) % Plt Count (130-400) K/uL AST 226 H 193 H 178 H (15-37) U/L 05/22/20 Range/Units 07:05 WBC 6.13 (4.8-10.8) K/uL Hgb 9.3 L (14.0-18.0) g/dL Hct 27.3 L (42-52) % Plt Count 107 L (130-400) K/uL AST (15-37) U/L Medications Administered Current Inpatient Medications Clonidine HCl (Clonidine Hcl 0.1 Mg Tab) 0.1 mg PO Q4H PRN PRN Reason: Hypertension Stop: 06/19/20 02:37 Gabapentin (Gabapentin 600 Mg Tab) 600 mg PO Q12H [facility] Stop: 05/22/20 16:01 Last Admin: 05/22/20 07:45 Dose: 600 mg Documented by: Gabapentin (Gabapentin 600 Mg Tab) 600 mg PO Q24H [facility] Stop: 05/23/20 16:01 Lorazepam (Ativan) 1 mg in 2 mls @ 2 mls/min IV UD PRN; Protocol PRN Reason: EtOH Withdrawl AWSS Score 6,7 Stop: 06/19/20 02:37 Lorazepam (Ativan) 2 mg in 4 mls @ 4 mls/min IV UD PRN; Protocol PRN Reason: EtOH Withdrawl AWSS Score 8,9 Stop: 06/19/20 02:37 Lorazepam (Ativan) 3 mg in 6 mls @ 4 mls/min IV ONCE PRN; Protocol PRN Reason: EtOH Withdrawl AWSS Score >=10 Stop: 06/19/20 02:37 Thiamine HCl 100 mg/ Syringe 10 mls @ 2 mls/min IV QAM [facility] Stop: 06/19/20 08:59 Last Admin: 05/22/20 07:47 Dose: 2 mls/min Documented by: Folic Acid 1 mg/ Syringe 10 mls @ 5 mls/min IV QAM [facility] Stop: 06/19/20 08:59 Last Admin: 05/22/20 07:47 Dose: 5 mls/min Documented by: Pantoprazole Sodium 40 mg/ (Dextrose) 100 mls @ 20 mls/hr IV Q5H [facility] Stop: 06/19/20 02:59 Last Admin: 05/22/20 09:30 Dose: 8 mg/hr, 20 mls/hr Documented by: Potassium Chloride/Dextrose/Sod Cl (D5nss + 20meq Kcl) 20 meq in 1,000 mls @ 50 mls/hr IV .Q20H [facility] Stop: 06/19/20 02:37 Last Admin: 05/22/20 10:23 Dose: 50 mls/hr Documented by: Ceftriaxone Sodium 1,000 mg/ (Dextrose) 60 mls @ 100 mls/hr IV DAILY@1400 [facility]; Protocol Stop: 05/30/20 13:59 Last Infusion: 05/21/20 15:03 Dose: Infused Documented by: Octreotide Acetate 500 mcg/ (Sodium Chloride) 100.5 mls @ 10 mls/hr IV .Q10H3M [facility] Stop: 06/19/20 13:44 Last Admin: 05/22/20 04:33 Dose: 10 mls/hr Documented by: Metoprolol Tartrate (Metoprolol Tartrate 1 Mg/Ml Vial) 5 mg IV Q6 PRN PRN Reason: Tachycardia Stop: 06/19/20 02:37 Miscellaneous (Remove Nicoderm Patch) 1 ea N/A DAILY@0859 [facility] Stop: 06/21/20 08:58 Last Admin: 05/22/20 07:44 Dose: 1 ea Documented by: Multivitamins/Minerals (Cerovite Adv Formula Tab) 1 tab PO QAM [facility] Stop: 06/19/20 08:59 Last Admin: 05/22/20 07:45 Dose: 1 tab Documented by: Nicotine (Nicotine 14 Mg/24 Hr Patch) 14 mg TD QAM [facility] Stop: 06/20/20 13:29 Last Admin: 05/22/20 07:44 Dose: 14 mg Documented by: Nitroglycerin (Nitroglycerin Sl 0.4 Mg/Tab Tab) 0.4 mg SL UD PRN PRN Reason: Chest Pain Stop: 06/19/20 02:37 Ondansetron HCl (Ondansetron Inj 2 Mg/Ml 2 Ml Vial) 4 mg IV Q6H PRN PRN Reason: Nausea Stop: 06/19/20 02:37 Polyethylene Glycol (Polyethylene (Miralax) 17 Gm Pack) 17 gm PO DAILY PRN PRN Reason: Constipation Stop: 06/20/20 04:02 (1) Anemia Anemia type: unspecified type Qualified Code(s): D64.9 - Anemia, unspecified
--- NOTE | 2020-05-22 13:52 | Gastroenterology Progress Note ---
Date of Service May 22, 2020 Assessment & Plan (1) Acute upper gastrointestinal bleeding: (2) Chronic alcohol use: (3) Esophageal varices: Continue octreotide gtt at present for 72 hours total Continue Protonix gtt at present Advance diet as tolerated Followup with Dr. Ortiz as outpatient for further evaluation of esophageal varices Admission and Anticipated Discharge Date Admission Date: May 20, 2020 Subjective Feeling, "good" today. He did have a non-bloody BM this AM. Has been tolerating clear liquids, but asking for diet to be advanced. He denies any lightheadedness, fevers, chills, nausea, vomiting or diarrhea. He has no further complaints. Review of Systems Review of Systems: All systems reviewed & are unremarkable except as noted in HPI & below Physical Exam Constitutional: WD/WN, vitals as above Respiratory: normal respiratory effort, lungs clear to auscultation Cardiovascular: RRR, no murmur, no edema Gastrointestinal (Abdomen): normal bowel sounds, soft, nontender, no hepatosplenomegaly Results & Data Results & Data ([facility]) Vital Signs (Past 12 Hours) Vital Signs Temp Pulse Pulse Resp BP BP Pulse Ox 05/22/20 11:52 37.2 C 86 18 123/70 97 05/22/20 08:00 72 05/22/20 07:44 37.2 C 88 18 126/76 95 05/22/20 03:41 36.7 C 87 18 105/63 90 PG Care Time/CCT Total # of Minutes Spent Total Time Spent with Patient: Total time spent is greater than 50% in coordination of care (as documented) at patient's floor/unit and/or counseling patient: Coding Level of Care Code 42609 Subseq Hosp Care Lvl 2 Diagnoses Acute upper gastrointestinal bleeding K92.2 Chronic alcohol use Z72.89 Esophageal varices I85.00
--- NOTE | 2020-05-22 14:27 | XRay Report ---
XR KUB/Abdomen 1 view CLINICAL HISTORY: Abdominal distention COMPARISON STUDY: 05/19/2020 FINDINGS: There is minor small bowel dilatation with loops measuring up to 33 mm in diameter. The fin dings are consistent with an ileus or partial/early small bowel obstruction. IMPRESSION: Mild gaseous distention of the small bowel. Diagnostic considerations include ileus vers us early or partial small bowel obstruction ACT 112: Negative or not required by law. Electronically signed by: Delroy Smith M.D. 05/22/2020 2:26 PM
[2020-05-22] MEDS: cefTRIAXone SODIUM 1,000 MG in DEXTROSE 5% 50 ML IV SCH (14:30)
[2020-05-23] MEDS: OCTREOTIDE ACETATE 500 MCG in 0.9 % SODIUM CHLORIDE 100 ML IV SCH ×2 (00:05→11:22)
[2020-05-23] MEDS: PANTOprazole 40 MG in DEXTROSE 5% 100 ML IV SCH ×5 (00:42→17:38)
[2020-05-23] MEDS: D5NSS + 20MEQ KCL 20 MEQ/1,000 ML BAG IV SCH (07:17)
[2020-05-23] MEDS: NICOTINE 14 MG/24 HR PATCH TD SCH (07:23)
[2020-05-23 07:42] LABS: Hematocrit (blood only) 30.6 % (42-52); Hemoglobin 10.3 g/dL (14.0-18.0); Mean Corpuscular Hgb Conc 33.7 g/dL (32-36); Mean Corpuscular Volume 104.1 fL (80-100); Mean Platelet Volume 12.9 fL (7.4-10.4); Platelet Count 129 K/uL (130-400); RDW Coefficient of Variation 18.8 % (11.5-14.5); RDW Standard Deviation 67.9 fL (36.4-46.3); Red Blood Count 2.94 M/uL (4.7-6.1); White Blood Count 6.15 K/uL (4.8-10.8)
[2020-05-23 07:57] LABS: Albumin Globulin Ratio 0.6 (0.9-2); Albumin Level 2.5 gm/dl (3.4-5.0); Bilirubin,Total 3.8 mg/dl (0.2-1); Calcium 8.8 mg/dl (8.5-10.1); Creatinine Clr Calc Pharmacy 121.2 ml/min; Est GFR (African American) 121.4; Est GFR (Non-African American) 104.7; Globulin 4.4 gm/dl (2.5-4.0); Magnesium 1.8 mg/dl (1.8-2.4); Phosphorus 2.4 mg/dl (2.5-4.9); Potassium 4.2 mmol/L (3.5-5.1); Total Protein 6.9 gm/dl (6.4-8.2)
[2020-05-23 08:03] LABS: Basophils # (auto) 0.05 K/uL (0-0.2); Basophils % (auto) 0.8 %; Eosinophils # (auto) 0.13 K/uL (0-0.5); Eosinophils % (auto) 2.1 %; Immature Granulocytes # (auto) 0.02 K/uL (0.00-0.02); Immature Granulocytes % (auto) 0.3 %; Lymphocytes # (auto) 1.82 K/uL (1.2-3.4); Lymphocytes % (auto) 29.6 %; Monocytes # (auto) 0.92 K/uL (0.11-0.59); Neutrophils # (auto) 3.21 K/uL (1.4-6.5); Neutrophils % (auto) 52.2 %; Target Cells 1+
[2020-05-23] MEDS: FOLIC ACID 1 MG in SYRINGE 9.8 ML IV SCH (08:47)
[2020-05-23] MEDS: CEROVITE ADV FORMULA TAB PO SCH (08:48)
[2020-05-23] MEDS: THIAMINE HCL 100 MG in SYRINGE 9 ML IV SCH (08:48)
--- NOTE | 2020-05-23 14:50 | Hospitalist Progress Note ---
Date of Service May 23, 2020 Assessment & Plan (1) Acute upper gastrointestinal bleeding: Presented with hematemesis and melena EGD on 05/20 showed grade 3 esophageal varices with stigmata of bleeding which were banded Has been getting intravenous octreotide and Protonix and empiric ceftriaxone Denies any symptoms as of today except some weakness Will monitor CBC-hemoglobin remains stable Hemoglobin remains stable at more than 10 as of 05/23/2020 We will finish octreotide infusion this afternoon and change Protonix to twice daily If the hemoglobin remains stable he will be discharged tomorrow Abdominal pain/discomfort Rated to be abdominal distention with sluggish bowel sound Has not had any bowel movement since day before yesterday We will get KUB to rule out any obstruction KUB shows possible ileus He moved his bowels today Will monitor electrolytes (2) Anemia: -Hospital day #1, on telemetry unit -Presented with hematemesis and melena. History of chronic alcohol use, limited prior medical care. -s/p EGD 05/20: Grade 3 esophageal varice with stigmata of bleeding, banded -Hgb 9.6 -> 8.0 -> 7.0. 1 unit PRBC ordered. Continue to follow serial H&H. -Hemoglobin remains stable at more than 9 -Monitor CBC-hemoglobin stable and maintaining (3) Elevated LFTs: -Total bili 5.2, AST 193, ALT 50, alk phos 142 -Likely due to chronic alcohol use /alcohol hepatitis. Discriminant function 2 5. No steroids at this time -Liver US showed hepatic steatosis and gallbladder sludge, no cholelithiasis -Continue to monitor LFTs (4) Chronic alcohol use: -Reports drinking several beers and 2 shots/day -Last drink on 05/17 -Alcohol withdrawal protocol with gabapentin and as needed lorazepam -Has minimal withdrawal symptoms but no delirium -Will likely need to go to inpatient rehab -We will get PT and OT evaluation prior to discharge -Discussed about inpatient rehab again today -He refused to go to inpatient rehab and plan to send him home tomorrow Tobacco abuse Advised to quit smoking We will provide nicotine patch (5) Coagulopathy: -INR 1.8 -Likely due to underlying alcoholic liver disease (6) Electrolyte abnormality: -K+ 3.4, MG +1.3, phosphorus 2.4 -Replace, follow electrolytes (7) DVT prophylaxis: -SCDs due to acute GI bleeding Admission and Anticipated Discharge Date Admission Date: May 20, 2020 Subjective Patient seen and examined. Denies further hematemesis and melena. Abdominal pain has improved. Denies chest pain or shortness of breath. No lightheadedness or dizziness. 05/21/2020 The patient was seen and examined in telemetry unit He has been feeling a little bit better today and complains to have abdominal bloating Does not have any nausea and or vomiting and his bowel has not moved yet Denies any palpitation and/or shortness of breath 05/22/2020 The patient was seen and examined in telemetry unit He has been feeling much better with some abdominal discomfort and distention Denies any chest pain and/or shortness of breath, denies any nausea and/or vomiting 05/23/2020 The patient was seen and examined in telemetry unit He has been feeling a lot better but he still has tremor and unsteadiness with ambulation Denies any abdominal pain, nausea and or vomiting, and no more melena Review of Systems Review of Systems: All systems reviewed and are unremarkable except as noted below Cardiovascular: + palpitations Gastrointestinal: + bloating; no abdominal pain, no nausea and no vomiting Neurologic: + unsteadiness and + generalized weakness Physical Exam Physical Exam: Lying in bed with minimal restlessness Constitutional: well developed, well nourished and + ill appearing Eyes: PERRL, conjunctivae normal, anicteric sclerae ENMT: external ear and nose normal, oropharynx normal Neck: trachea midline, no thyromegaly Respiratory: no respiratory distress Auscultation: lungs clear to auscultation bilaterally Cardiovascular: Rate/Rhythm: regular rate and regular rhythm Heart Sounds: no murmur Extremities: + edema (Trace edema bilaterally) Gastrointestinal (Abdomen): Inspection/Auscultation: + abdomen distended and normal bowel sounds (Diminished) Percussion/Palpation: + abdomen tender (Mildly tender lower quadrants) and abdomen soft Musculoskeletal: No acute arthritis in any joint Neurologic: moves all extremities Alert, awake and oriented x3. Psychiatric: Insight: + poor insight Lymphatic: no cervical or axillary lymphadenopathy Results & Data Results & Data ([facility]) Vital Signs (Past 12 Hours) Vital Signs Temp Pulse Pulse Resp BP Pulse Ox 05/23/20 11:51 36.9 C 88 18 134/62 95 05/23/20 08:06 36.5 C 88 18 118/62 97 05/23/20 07:00 84 Laboratory Results Short CBC 05/23/20 Range/Units 06:35 WBC 6.15 (4.8-10.8) K/uL Hgb 10.3 L (14.0-18.0) g/dL Hct 30.6 L (42-52) % Plt Count 129 L (130-400) K/uL BMP 05/23/20 06:35 Sodium 133 L Potassium 4.2 D Chloride 100 Carbon Dioxide 28 BUN 6 L D Creatinine 0.75 Glucose 102 H Calcium 8.8 Liver Function 05/23/20 Range/Units 06:35 Total Bilirubin 3.8 H (0.2-1) mg/dl AST 132 H (15-37) U/L ALT 53 (12-78) U/L Alkaline Phosphatase 159 H (45-117) U/L Albumin 2.5 L (3.4-5.0) gm/dl Medications Administered Current Inpatient Medications Clonidine HCl (Clonidine Hcl 0.1 Mg Tab) 0.1 mg PO Q4H PRN PRN Reason: Hypertension Stop: 06/19/20 02:37 Gabapentin (Gabapentin 600 Mg Tab) 600 mg PO Q24H [facility] Stop: 05/23/20 16:01 Lorazepam (Ativan) 1 mg in 2 mls @ 2 mls/min IV UD PRN; Protocol PRN Reason: EtOH Withdrawl AWSS Score 6,7 Stop: 06/19/20 02:37 Lorazepam (Ativan) 2 mg in 4 mls @ 4 mls/min IV UD PRN; Protocol PRN Reason: EtOH Withdrawl AWSS Score 8,9 Stop: 06/19/20 02:37 Lorazepam (Ativan) 3 mg in 6 mls @ 4 mls/min IV ONCE PRN; Protocol PRN Reason: EtOH Withdrawl AWSS Score >=10 Stop: 06/19/20 02:37 Thiamine HCl 100 mg/ Syringe 10 mls @ 2 mls/min IV QAM [facility] Stop: 06/19/20 08:59 Last Admin: 05/23/20 08:48 Dose: 2 mls/min Documented by: Folic Acid 1 mg/ Syringe 10 mls @ 5 mls/min IV QAM [facility] Stop: 06/19/20 08:59 Last Admin: 05/23/20 08:47 Dose: 5 mls/min Documented by: Pantoprazole Sodium 40 mg/ (Dextrose) 100 mls @ 20 mls/hr IV Q5H [facility] Stop: 06/19/20 02:59 Last Admin: 05/23/20 10:07 Dose: 8 mg/hr, 20 mls/hr Documented by: Potassium Chloride/Dextrose/Sod Cl (D5nss + 20meq Kcl) 20 meq in 1,000 mls @ 50 mls/hr IV .Q20H [facility] Stop: 06/19/20 02:37 Last Admin: 05/23/20 07:17 Dose: 50 mls/hr Documented by: Ceftriaxone Sodium 1,000 mg/ (Dextrose) 60 mls @ 100 mls/hr IV DAILY@1400 [facility]; Protocol Stop: 05/30/20 13:59 Last Infusion: 05/22/20 15:15 Dose: Infused Documented by: Metoprolol Tartrate (Metoprolol Tartrate 1 Mg/Ml Vial) 5 mg IV Q6 PRN PRN Reason: Tachycardia Stop: 06/19/20 02:37 Miscellaneous (Remove Nicoderm Patch) 1 ea N/A DAILY@0859 [facility] Stop: 06/21/20 08:58 Last Admin: 05/23/20 07:25 Dose: 1 ea Documented by: Multivitamins/Minerals (Cerovite Adv Formula Tab) 1 tab PO QAM [facility] Stop: 06/19/20 08:59 Last Admin: 05/23/20 08:48 Dose: 1 tab Documented by: Nicotine (Nicotine 14 Mg/24 Hr Patch) 14 mg TD QAM [facility] Stop: 06/20/20 13:29 Last Admin: 05/23/20 07:23 Dose: 14 mg Documented by: Nitroglycerin (Nitroglycerin Sl 0.4 Mg/Tab Tab) 0.4 mg SL UD PRN PRN Reason: Chest Pain Stop: 06/19/20 02:37 Ondansetron HCl (Ondansetron Inj 2 Mg/Ml 2 Ml Vial) 4 mg IV Q6H PRN PRN Reason: Nausea Stop: 06/19/20 02:37 Polyethylene Glycol (Polyethylene (Miralax) 17 Gm Pack) 17 gm PO DAILY PRN PRN Reason: Constipation Stop: 06/20/20 04:02 (1) Anemia Anemia type: unspecified type Qualified Code(s): D64.9 - Anemia, unspecified
[2020-05-23] MEDS: cefTRIAXone SODIUM 1,000 MG in DEXTROSE 5% 50 ML IV SCH (15:26)
[2020-05-23] MEDS ORDERED: GABAPENTIN 600 MG TAB PO SCH (16:00)
[2020-05-23] MEDS: PANTOprazole 40 MG TAB PO SCH (20:24)
[2020-05-24] MEDS: D5NSS + 20MEQ KCL 20 MEQ/1,000 ML BAG IV SCH (01:03)
[2020-05-24] MEDS ORDERED: ACETAMINOPHEN 325 MG TAB PO STA (03:03)
[2020-05-24 06:47] LABS: Basophils # (auto) 0.04 K/uL (0-0.2); Basophils % (auto) 0.7 %; Eosinophils # (auto) 0.19 K/uL (0-0.5); Eosinophils % (auto) 3.2 %; Hematocrit (blood only) 30.9 % (42-52); Hemoglobin 10.2 g/dL (14.0-18.0); Immature Granulocytes # (auto) 0.01 K/uL (0.00-0.02); Immature Granulocytes % (auto) 0.2 %; Lymphocytes % (auto) 26.8 %; Mean Corpuscular Hemoglobin 34.5 pg (25-34); Mean Corpuscular Volume 104.4 fL (80-100); Mean Platelet Volume 12.2 fL (7.4-10.4); Monocytes # (auto) 1.19 K/uL (0.11-0.59); Neutrophils # (auto) 2.93 K/uL (1.4-6.5); Neutrophils % (auto) 49.1 %; Platelet Count 174 K/uL (130-400); RDW Coefficient of Variation 18.6 % (11.5-14.5); RDW Standard Deviation 68.9 fL (36.4-46.3); Red Blood Count 2.96 M/uL (4.7-6.1); White Blood Count 5.96 K/uL (4.8-10.8)
[2020-05-24 07:36] LABS: Albumin Globulin Ratio 0.5 (0.9-2); Albumin Level 2.4 gm/dl (3.4-5.0); BUN Creatinine Ratio 8.6 (10-20); Bilirubin,Total 3.6 mg/dl (0.2-1); Calcium 8.6 mg/dl (8.5-10.1); Creatinine Clr Calc Pharmacy 117.9 ml/min; Est GFR (African American) 121.4; Est GFR (Non-African American) 104.7; Globulin 4.5 gm/dl (2.5-4.0); Magnesium 1.7 mg/dl (1.8-2.4); Phosphorus 2.7 mg/dl (2.5-4.9); Potassium 3.9 mmol/L (3.5-5.1); Total Protein 6.9 gm/dl (6.4-8.2)
[2020-05-24] MEDS: NICOTINE 14 MG/24 HR PATCH TD SCH (10:23)
[2020-05-24] MEDS: CEROVITE ADV FORMULA TAB PO SCH (10:23)
[2020-05-24] MEDS: FOLIC ACID 1 MG in SYRINGE 9.8 ML IV SCH (10:23)
[2020-05-24] MEDS: THIAMINE HCL 100 MG in SYRINGE 9 ML IV SCH (10:23)
[2020-05-24] MEDS: PANTOprazole 40 MG TAB PO SCH (10:23)
--- NOTE | 2020-05-24 12:11 | Hospitalist Progress Note ---
Date of Service May 24, 2020 Assessment & Plan (1) Acute upper gastrointestinal bleeding: Presented with hematemesis and melena EGD on 05/20 showed grade 3 esophageal varices with stigmata of bleeding which were banded Has been getting intravenous octreotide and Protonix and empiric ceftriaxone Denies any symptoms as of today except some weakness Will monitor CBC-hemoglobin remains stable Hemoglobin remains stable at more than 10 as of 05/23/2020 We will finish octreotide infusion this afternoon and change Protonix to twice daily If the hemoglobin remains stable he will be discharged tomorrow If hemoglobin remains stable and no more evidence of GI bleeding He will be discharged home this afternoon Rogelio HERNANDEZ will make a follow-up appointment with the patient in the near future Abdominal pain/discomfort-resolved Rated to be abdominal distention with sluggish bowel sound Has not had any bowel movement since day before yesterday We will get KUB to rule out any obstruction KUB shows possible ileus He moved his bowels today Will monitor electrolytes-remains unremarkable (2) Anemia: -Hospital day #1, on telemetry unit -Presented with hematemesis and melena. History of chronic alcohol use, limited prior medical care. -s/p EGD 05/20: Grade 3 esophageal varice with stigmata of bleeding, banded -Hgb 9.6 -> 8.0 -> 7.0. 1 unit PRBC ordered. Continue to follow serial H&H. -Hemoglobin remains stable at more than 9 -Hemoglobin remained more than 10 for the last (3) Elevated LFTs: -Total bili 5.2, AST 193, ALT 50, alk phos 142 -Likely due to chronic alcohol use /alcohol hepatitis. Discriminant function 25. No steroids at this time -Liver US showed hepatic steatosis and gallbladder sludge, no cholelithiasis -Continue to monitor LFTs (4) Chronic alcohol use: -Reports drinking several beers and 2 shots/day -Last drink on 05/17 -Alcohol withdrawal protocol with gabapentin and as needed lorazepam -Has minimal withdrawal symptoms but no delirium -Will likely need to go to inpatient rehab -We will get PT and OT evaluation prior to discharge -Discussed about inpatient rehab again today -He refused to go to inpatient rehab and plan to send him home tomorrow -He refused to go to inpatient rehab and he will think about going to outpatient rehab and/or even inpatient rehab after discussion with his mom at home -Appropriate information was provided by the corrections caseworker Tobacco abuse Advised to quit smoking We will provide nicotine patch (5) Coagulopathy: -INR 1.8 -Likely due to underlying alcoholic liver disease (6) Electrolyte abnormality: -K+ 3.4, MG +1.3, phosphorus 2.4 -Replace, follow electrolytes (7) DVT prophylaxis: -SCDs due to acute GI bleeding Tried to call the mom x2 throughout this morning without any success. Admission and Anticipated Discharge Date Admission Date: May 20, 2020 Subjective Patient seen and examined. Denies further hematemesis and melena. Abdominal pain has improved. Denies chest pain or shortness of breath. No lightheadedness or dizziness. 05/21/2020 The patient was seen and examined in telemetry unit He has been feeling a little bit better today and complains to have abdominal bloating Does not have any nausea and or vomiting and his bowel has not moved yet Denies any palpitation and/or shortness of breath 05/22/2020 The patient was seen and examined in telemetry unit He has been feeling much better with some abdominal discomfort and distention Denies any chest pain and/or shortness of breath, denies any nausea and/or vomi ting 05/23/2020 The patient was seen and examined in telemetry unit He has been feeling a lot better but he still has tremor and unsteadiness with ambulation Denies any abdominal pain, nausea and or vomiting, and no more melena 05/24/2020 The patient was seen and examined in telemetry unit He has been feeling a lot better without any significant tremor and/or gait abnormality Denies any abdominal pain, discomfort, any nausea or black stool He refused to go to inpatient rehab and he will be sent home this afternoon Review of Systems Review of Systems: All systems reviewed and are unremarkable except as noted below Cardiovascular: no palpitations Gastrointestinal: no abdominal pain, no bloating, no nausea and no vomiting Neurologic: + unsteadiness and + generalized weakness Physical Exam 2 Physical Exam: Lying in bed with minimal restlessness Constitutional: well developed, well nourished and + ill appearing Eyes: PERRL, conjunctivae normal, anicteric sclerae ENMT: external ear and nose normal, oropharynx normal Neck: trachea midline, no thyromegaly Respiratory: no respiratory distress Auscultation: lungs clear to auscultation bilaterally Cardiovascular: Rate/Rhythm: regular rate and regular rhythm Heart Sounds: no murmur Extremities: + edema (Trace edema bilaterally) Gastrointestinal (Abdomen): Inspection/Auscultation: + abdomen distended and normal bowel sounds (Diminished) Percussion/Palpation: abdomen soft; abdomen nontender (Mildly tender lower quadrants) Musculoskeletal: No acute arthritis in any joint Neurologic: moves all extremities Alert, awake and oriented x3. No focal sensory and motor deficit appreciated Psychiatric: A+Ox3, euthymic affect Insight: + poor insight Lymphatic: no cervical or axillary lymphadenopathy Results & Data Results & Data ([facility]) Vital Signs (Past 12 Hours) Vital Signs Temp Pulse Pulse Resp BP BP Pulse Ox 05/24/20 11:57 36.5 C 88 18 118/69 98 05/24/20 10:03 74 05/24/20 07:53 37.0 C 86 18 129/73 99 05/24/20 02:48 36.6 C 86 17 122/76 97 Laboratory Results Short CBC 05/24/20 Range/Units 06:17 WBC 5.96 (4.8-10.8) K/uL Hgb 10.2 L (14.0-18.0) g/dL Hct 30.9 L (42-52) % Plt Count 174 (130-400) K/uL BMP 05/24/20 06:17 Sodium 131 L Potassium 3.9 Chloride 98 Carbon Dioxide 27 BUN 6 L Creatinine 0.75 Glucose 97 Calcium 8.6 Liver Function 05/24/20 Range/Units 06:17 Total Bilirubin 3.6 H (0.2-1) mg/dl AST 99 H (15-37) U/L ALT 46 (12-78) U/L Alkaline Phosphatase 153 H (45-117) U/L Albumin 2.4 L (3.4-5.0) gm/dl Medications Administered Current Inpatient Medications Clonidine HCl (Clonidine Hcl 0.1 Mg Tab) 0.1 mg PO Q4H PRN PRN Reason: Hypertension Stop: 06/19/20 02:37 Lorazepam (Ativan) 1 mg in 2 mls @ 2 mls/min IV UD PRN; Protocol PRN Reason: EtOH Withdrawl AWSS Score 6,7 Stop: 06/19/20 02:37 Lorazepam (Ativan) 2 mg in 4 mls @ 4 mls/min IV UD PRN; Protocol PRN Reason: EtOH Withdrawl AWSS Score 8,9 Stop: 06/19/20 02:37 Lorazepam (Ativan) 3 mg in 6 mls @ 4 mls/min IV ONCE PRN; Protocol PRN Reason: EtOH Withdrawl AWSS Score >=10 Stop: 06/19/20 02:37 Thiamine HCl 100 mg/ Syringe 10 mls @ 2 mls/min IV [facility] Stop: 06/19/20 08:59 Last Admin: 05/24/20 10:23 Dose: 2 mls/min Documented by: Folic Acid 1 mg/ Syringe 10 mls @ 5 mls/min IV [facility] Stop: 06/19/20 08:59 Last Admin: 05/24/20 10:23 Dose: 5 mls/min Documented by: Potassium Chloride/Dextrose/Sod Cl (D5nss + 20meq Kcl) 20 meq in 1,000 mls @ 50 mls/hr IV .Q20H [facility] Stop: 06/19/20 02:37 Last Admin: 05/24/20 01:03 Dose: 50 mls/hr Documented by: Ceftriaxone Sodium 1,000 mg/ (Dextrose) 60 mls @ 100 mls/hr IV DAILY@1400 [facility]; Protocol Stop: 05/30/20 13:59 Last Infusion: 05/23/20 16:02 Dose: Infused Documented by: Metoprolol Tartrate (Metoprolol Tartrate 1 Mg/Ml Vial) 5 mg IV Q6 PRN PRN Reason: Tachycardia Stop: 06/19/20 02:37 Miscellaneous (Remove Nicoderm Patch) 1 ea N/A DAILY@0859 [facility] Stop: 06/21/20 08:58 Last Admin: 05/24/20 10:23 Dose: 1 ea Documented by: Multivitamins/Minerals (Cerovite Adv Formula Tab) 1 tab PO [facility] Stop: 06/19/20 08:59 Last Admin: 05/24/20 10:23 Dose: 1 tab Documented by: Nicotine (Nicotine 14 Mg/24 Hr Patch) 14 mg TD [facility] Stop: 06/20/20 13:29 Last Admin: 05/24/20 10:23 Dose: 14 mg Documented by: Nitroglycerin (Nitroglycerin Sl 0.4 Mg/Tab Tab) 0.4 mg SL UD PRN PRN Reason: Chest Pain Stop: 06/19/20 02:37 Ondansetron HCl (Ondansetron Inj 2 Mg/Ml 2 Ml Vial) 4 mg IV Q6H PRN PRN Reason: Nausea Stop: 06/19/20 02:37 Pantoprazole Sodium (Pantoprazole 40 Mg Tab) 40 mg PO BID [facility] Stop: 06/22/20 20:59 Last Admin: 05/24/20 10:23 Dose: 40 mg Documented by: Polyethylene Glycol (Polyethylene (Miralax) 17 Gm Pack) 17 gm PO DAILY PRN PRN Reason: Constipation Stop: 06/20/20 04:02 (1) Anemia Anemia type: unspecified type Qualified Code(s): D64.9 - Anemia, unspecified
--- NOTE | 2020-05-24 16:20 | Discharge Summary ---
Date of Service May 24, 2020 Admission HPI Per Admitting Provider DICTATED BY: Fidencio Barrera MD DATE OF ADMISSION: 05/20/2020 CHIEF COMPLAINT: Blood in the stools and hematemesis. HISTORY OF PRESENT ILLNESS: This is a 54-year-old male with ongoing tobacco abuse and alcohol abuse, who presents with several episodes of hematemesis. As per the patient, he has had about 6 episodes of hematemesis, small amounts since last 1 week, and also few episodes of black stools, and also having abdominal discomfort, which prompted him to come to the ER. He says he drinks several beers everyday and also two shots of Vodka every day for almost 30 years, but his last drink was last Saturday. He also smokes three-quarters of a pack a day of cigarettes for the last 30 years. He lives with his mom and his cats. In the ER, he was found to have tachycardia and shaky and received a dose of Ativan. His hemoglobin was 9.6, we do not have the baseline. His INR is 1.8. Potassium is 3.3, creatinine 1.7, T. bili 6.5,AST 226, ALT 63, alkaline phosphatase 174. Troponin less than 0.015. Hemoccult was positive. Rapid COVID test was negative. EKG showed sinus tachycardia. Complains of some abdominal discomfort. Denies any chest pain. He gets short of breath on exertion. Denies any headache, no blurred vision, no earache, no runny nose, no sore throat. He has smoker's cough. Denies any fevers or chills. He has some nausea. Normal bladder movements. Admission Exam Per Admitting Provider GENERAL: The patient is of moderate build, not in acute distress. VITAL SIGNS: Temperature 36.7, pulse 72, respiratory rate 20, blood pressure 106/74, oxygen 97% on room air. HEENT: Pupils equal, round, and reactive to light. Oral mucosa moist. NECK: No neck masses seen. CARDIOVASCULAR: S1, S2 heard. Tachycardia. No murmurs. RESPIRATORY SYSTEM: Normal AP diameter. No accessory muscle use. Mild bilateral occasional wheezing. No crackles. ABDOMEN: Soft, bowel sounds present, nontender. No distention. CENTRAL NERVOUS SYSTEM: Cranial nerves II-XII grossly intact. Nonfocal. EXTREMITIES: No edema, no erythema. Principal Diagnosis Upper GI bleed secondary to grade 3 esophageal varices which were banded, chronic alcoholism, tobacco use disorder Discharge Exam Constitutional well developed, well nourished and + ill appearing Eyes PERRL, conjunctivae normal, anicteric sclerae ENMT external ear and nose normal, oropharynx normal Neck trachea midline, no thyromegaly Respiratory no respiratory distress Auscultation: lungs clear to auscultation bilaterally Cardiovascular Rate/Rhythm: regular rate and regular rhythm Heart Sounds: no murmur Extremities: + edema (Trace edema bilaterally) Gastrointestinal (Abdomen) Inspection/Auscultation: + abdomen distended and normal bowel sounds (Diminished) Percussion/Palpation: abdomen soft; abdomen nontender (Mildly tender lower quadrants) Neurologic moves all extremities Psychiatric A+Ox3, euthymic affect Insight: + poor insight Lymphatic no cervical or axillary lymphadenopathy Discharge Data Allergies Allergy/AdvReac Type Severity Reaction Status Date / Time pollen extracts Allergy Intermediate SNEEZING, Verified 05/19/20 23:14 CONGESTION Consultations 05/20/20 00:07 ED Decision to Admit Stat 05/20/20 02:38 Consult Case Management - Discharge Planning Routine 05/20/20 08:00 Consult Gastroenterology Routine Procedures Performed Operation Date: 05/20/20 08:45 Actual Procedures p EGD Banding of Varices(Not Applicable) - Rickie Ortiz DO Ordered Studies 05/20/20 08:00 liver Routine Hospital Course (1) Acute upper gastrointestinal bleeding: Presented with hematemesis and melena EGD on 05/20 showed grade 3 esophageal varices with stigmata of bleeding which were banded Has been getting intravenous octreotide and Protonix and empiric ceftriaxone Denies any symptoms as of today except some weakness Will monitor CBC-hemoglobin remains stable Hemoglobin remains stable at more than 10 as of 05/23/2020 We will finish octreotide infusion this afternoon and change Protonix to twice daily If the hemoglobin remains stable he will be discharged tomorrow If hemoglobin remains stable and no more evidence of GI bleeding He will be discharged home this afternoon Rogelio HERNANDEZ will make a follow-up appointment with the patient in the near future Abdominal pain/discomfort-resolved Rated to be abdominal distention with sluggish bowel sound Has not had any bowel movement since day before yesterday We will get KUB to rule out any obstruction KUB shows possible ileus He moved his bowels today Will monitor electrolytes-remains unremarkable (2) Anemia: -Hospital day #1, on telemetry unit -Presented with hematemesis and melena. History of chronic alcohol use, limited prior medical care. -s/p EGD 05/20: Grade 3 esophageal varice with stigmata of bleeding, banded -Hgb 9.6 -> 8.0 -> 7.0. 1 unit PRBC ordered. Continue to follow serial H&H. -Hemoglobin remains stable at more than 9 -Hemoglobin remained more than 10 for the last (3) Elevated LFTs: -Total bili 5.2, AST 193, ALT 50, alk phos 142 -Likely due to chronic alcohol use /alcohol hepatitis. Discriminant function 25. No steroids at this time -Liver US showed hepatic steatosis and gallbladder sludge, no cholelithiasis -Continue to monitor LFTs (4) Chronic alcohol use: -Reports drinking several beers and 2 shots/day -Last drink on 05/17 -Alcohol withdrawal protocol with gabapentin and as needed lorazepam -Has minimal withdrawal symptoms but no delirium -Will likely need to go to inpatient rehab -We will get PT and OT evaluation prior to discharge -Discussed about inpatient rehab again today -He refused to go to inpatient rehab and plan to send him home tomorrow -He refused to go to inpatient rehab and he will think about going to outpatient rehab and/or even inpatient rehab after discussion with his mom at home -Appropriate information was provided by the supportive employment case manager Tobacco abuse Advised to quit smoking We will provide nicotine patch (5) Coagulopathy: -INR 1.8 -Likely due to underlying alcoholic liver disease (6) Electrolyte abnormality: -K+ 3.4, MG +1.3, phosphorus 2.4 -Replace, follow electrolytes (7) DVT prophylaxis: -SCDs due to acute GI bleeding Tried to call the mom x2 throughout this morning without any success. Total Time Total Time Spent Total Time Spent (In Minutes): 40 minutes Total Time Includes: Examination of the Patient, Discharge Planning, Medication Reconciliation and Communication With Other Providers Discharge Plan Discharge Items Patient Disposition: Home - Self-Care Reason For Visit: GI BLEED Discharge Diagnosis: Upper GI bleed secondary to grade 3 esophageal varices which were banded, chronic alcoholism, tobacco use disorder Condition on Discharge: Fair Activity: Resume your previous activity Non-emergency contact: Primary Care Provider Call non-emergency contact if: you have any medication questions and your symptoms worsen Follow-up/Referrals: Carson Benitez MD [Primary Care Provider] - 05/27/20 10:00 am (Date & Time 05/27/2020 10:00 AM Provider Carson Benitez MD [facility] ) Diet: Regular Addtl Attending Provider Instructions: Please take precaution to avoid falls Strongly advised to quit drinking and quit smoking Strongly advised to consider rehab inpatient or as an outpatient Please do not use any ibuprofen and/or NSAID's Pending Studies at Discharge: No Stand-Alone Forms: My [facility] [employer], Smoking Cessation Medications and DC Order Prescriptions: New pantoprazole 40 mg Tablet,Delayed Release (Dr/Ec) 40 mg PO BID 30 Days Qty: 60 RF: 0 nicotine 7 mg/24 hr Patch 24 Hour 14 mg transdermal QAM 30 Days Qty: 30 RF: 0 Certavite-Antioxidant 18-400 mg-mcg Tablet 1 tab PO QAM 30 Days Qty: 30 RF: 0 thiamine HCl (vitamin B1) 100 mg tablet 100 mg PO DAILY Qty: 30 RF: 0 folic acid 1 mg tablet 1 mg PO DAILY Qty: 30 RF: 0 Continued Probiotic Gummies 1 dose PO DAILY RF: 0 Discontinued ibuprofen 200 mg Tablet 400 - 600 mg PO DIRECTED PRN (Reason: FEVER/PAIN) RF: 0 Discharge Orders: Discharge Order (Routine); Ordered 05/24/20 Ordered By: Efrem Linn Admission Data Admit Date/Time: 05/20/20 01:32 Attending Provider: Efrem Linn Admit Provider: Fidencio Barrera Primary Care Provider: Carson Benitez Other Providers: Fidencio Barrera ; Simone Allen Other Interventions: Discharge Summary Assessment (RN) Last Done: 05/24/20 12:24
[2020-05-25 11:07] LABS: MDA negative; MDEA negative; MDMA (Ecstasy) Urine, Confirm negative
== END 2020-05-24 12:51 | disposition home or self-care (01) | DRG 369 ==
LOC: ED 22:32 → 2S 05-20 01:32